=== PATIENT | female | born 1945 | race Caucasian/White ===

== ENCOUNTER → 2016-05-18 | Outpatient (CLI) | payer OTHER | LOC: FIMAGING 10:18 | PROVIDERS: ATTEND Internal Medicine | DX: M48.02 Spinal stenosis, cervical region (principal); R42 Dizziness and giddiness; M54.2 Cervicalgia; M50.30 Other cervical disc degeneration, unspecified cervical region; G95.20 Unspecified cord compression; I71.4 Abdominal aortic aneurysm, without rupture; I72.3 Aneurysm of iliac artery ==

== ENCOUNTER 2016-09-07 05:00 | Inpatient (IN) | payer OTHER ==
--- NOTE | 2016-09-07 05:10 | EDPHY ---
H & P Stated Complaint: abd and back pain, n/v HPI/ROS: Chief Complaint: Abdominal pain HPI: 71-year-old woman presenting with abdominal pain for the last 12 hours. Again yesterday late afternoon. Has been crampy in nature. At worst is a 6/ 10. Some nausea and vomiting. No diarrhea but has had some constipation. No fevers or chills. No chest pain or shortness of breath. Pain has been constant. There is no aggravating or alleviating factors. she does have a history of kidney stones but this feels very different. ROS: 10 point Review of Systems is negative except as noted in the HPI. PMH: Kidney stones Surgical history: None Medications: None Allergies: None Social History: No smoking, no alcohol, no recreational drug use Family History: non-contributory Physical Exam: Gen: Awake, Alert, uncomfortable appearing HEENT: Nose: no rhinorrhea Eyes: PERRLA, EOMI Mouth: Moist mucosa Neck: Supple, no JVD Chest: nontender, lungs clear to auscultation Heart: S1, S2 normal, no murmur Abd: Soft, diffuse abdominal tenderness without distention, most noted in the right greater than left lower quadrant., moderate voluntary guarding Back: no CVA tenderness, no midline tenderness Ext: no edema, non-tender Skin: no rash Neuro: CN II-XII intact, Sensation grossly intact, Strength 5/5 in bilateral upper and lower extremities - Personal History Tetanus Vaccine Date: <10YRS - Medical/Surgical History Hx Asthma: No Hx Chronic Respiratory Disease: No Hx Diabetes: No Hx Cardiac Disease: No Hx Renal Disease: No Hx Cirrhosis: No Hx Alcoholism: No Hx HIV/AIDS: No Hx Splenectomy or Spleen Trauma: No Other PMH: kidney stones - Social History Smoking Status: Never smoked Constitutional: Initial Vital Signs Temperature (C) 36.9 C 09/07/16 05:04 Heart Rate 71 09/07/16 05:04 Respiratory Rate 18 09/07/16 05:04 Blood Pressure 127/77 H 09/07/16 05:04 O2 Sat (%) 93 09/07/16 05:04 O2 Delivery Mode Room Air O2 (L/minute) 3 Allergies/Adverse Reactions: No Known Allergies Allergy (Verified 12/28/14 10:53) Home Medications: Medication Instructions Recorded NK [No Known Home Meds] 09/07/16 Medical Decision Making - Diagnostics Imaging Results: High-grade mechanical small-bowel obstruction down to the ileum with some associated ascites per Dr. Barron Imaging: Discussed imaging studies w/ calliope player Radiologist ED Course/Re-evaluation: Laboratory evaluations are unremarkable. Patient is improved after analgesia. CT scan shows a high-grade small-bowel obstruction. I have discussed with Dr. Us, general surgery. He is evaluating the patient now. I have spoke with Dr. Daley, hospitalist. She will admit to their service for further care and evaluation. - Data Points Laboratory Results: Laboratory Results 09/07/16 05:20 09/07/16 05:20 09/07/16 09/07/16 05:20 05:20 WBC 9.04 10^3/uL 10^3/uL (3.80-9.50) RBC 4.91 10^6/uL 10^6/uL (4.18-5.33) Hgb 15.4 g/dL g/dL (12.6-16.3) Hct 46.1 % % (38.0-47.0) MCV 93.9 fL fL (81.5-99.8) MCH 31.4 pg pg (27.9-34.1) MCHC 33.4 g/dL g/dL (32.4-36.7) RDW 14.0 % % (11.5-15.2) Plt Count 341 10^3/uL 10^3/uL (150-400) MPV 9.2 fL fL (8.7-11.7) Neut % (Auto) 57.8 % % (39.3-74.2) Lymph % (Auto) 26.4 % % (15.0-45.0) Traverse % (Auto) 7.6 % % (4.5-13.0) Eos % (Auto) 6.7 % % (0.6-7.6) Baso % (Auto) 1.2 % % (0.3-1.7) Nucleat RBC Rel Count 0.0 % % (0.0-0.2) Absolute Neuts (auto) 5.21 10^3/uL 10^3/uL (1.70-6.50) Absolute Lymphs (auto) 2.39 10^3/uL 10^3/uL (1.00-3.00) Absolute Monos (auto) 0.69 10^3/uL 10^3/uL (0.30-0.80) Absolute Eos (auto) 0.61 10^3/uL H 10^3/uL (0.03-0.40) Absolute Basos (auto) 0.11 10^3/uL H 10^3/uL (0.02-0.10) Absolute Nucleated RBC 0.00 10^3/uL 10^3/uL (0-0.01) Immature Gran % 0.3 % % (0.0-1.1) Immature Gran # 0.03 10^3/uL 10^3/uL (0.00-0.10) Sodium 143 mEq/L mEq/L (134-144) Potassium 4.4 mEq/L mEq/L (3.5-5.2) Chloride 109 mEq/L mEq/L (97-110) Carbon Dioxide 26 mEq/l mEq/l (22-31) Anion Gap 8 mEq/L mEq/L (8-16) BUN 12 mg/dL mg/dL (7-23) Creatinine 0.8 mg/dL mg/dL (0.6-1.0) Estimated GFR > 60 Glucose 120 mg/dL H mg/dL (70-100) Calcium 10.2 mg/dL mg/dL (8.5-10.4) Total Bilirubin 0.7 mg/dL mg/dL (0.1-1.4) Conjugated Bilirubin 0.3 mg/dL mg/dL (0.0-0.5) Unconjugated Bilirubin 0.4 mg/dL mg/dL (0.0-1.1) AST 27 IU/L IU/L (14-46) ALT 38 IU/L IU/L (9-52) Alkaline Phosphatase 100 IU/L IU/L (38-126) Total Protein 6.8 g/dL g/dL (6.3-8.2) Albumin 4.0 g/dL g/dL (3.5-5.0) Lipase 87.0 IU/L IU/L (23-300) Medications Given: Discontinued Medications Sodium Chloride (Ns) 1,000 mls @ 0 mls/hr IV ONCE ONE PRN Reason: Wide Open Stop: 09/07/16 05:20 Last Admin: 09/07/16 05:19 Dose: 1,000 mls Morphine Sulfate (Morphine) 4 mg IVP ONCE ONE Stop: 09/07/16 05:20 Last Admin: 09/07/16 05:20 Dose: 4 mg Ondansetron HCl (Zofran) 4 mg IVP EDNOW ONE Stop: 09/07/16 05:20 Last Admin: 09/07/16 05:20 Dose: 4 mg Departure - Departure Disposition: [facility] Inpatient Acute Clinical Impression: Small bowel obstruction Condition: Fair Referrals: Sadie Blanco MD [Primary Care Provider] - As per Instructions
[2016-09-07] MEDS ORDERED: NS 1,000 ML IV ONE (05:19)
[2016-09-07] MEDS ORDERED: ONDANSETRON 4 MG/2 ML VIAL IVP ONE (05:19)
[2016-09-07 05:27] LABS: % IMMATURE GRANULYOCYTES 0.3 % (0.0-1.1); ABSOLUTE IMMATURE GRANULOCYTES 0.03 10^3/uL (0.00-0.10); ADD DIFF? NO; ADD MORPH? NO; ADD SCAN? NO; ATYPICAL LYMPHOCYTE FLAG 0 (0-99); FRAGMENT RBC FLAG 0 (0-99); HEMATOCRIT 46.1 % (38.0-47.0); HEMOGLOBIN 15.4 g/dL (12.6-16.3); LEFT SHIFT FLG 0 (0-99); LIPEMIA HEMOLYSIS FLAG 80 (0-99); MEAN CELL HEMOGLOBIN 31.4 pg (27.9-34.1); MEAN CELL HEMOGLOBIN CONCENTR. 33.4 g/dL (32.4-36.7); MEAN CELL VOLUME 93.9 fL (81.5-99.8); MEAN PLATELET VOLUME 9.2 fL (8.7-11.7); PLATELET CLUMPS FLAG 0 (0-99); PLATELET COUNT 341 10^3/uL (150-400); RED BLOOD CELL COUNT 4.91 10^6/uL (4.18-5.33)
[2016-09-07] MEDS ORDERED: IOPAMIDOL (ISOVUE-300) 100 ML BTL ONE (05:28)
[2016-09-07 06:07] LABS: ALANINE AMINOTRANSFERASE 38 IU/L (9-52); ALKALINE PHOSPHATASE 100 IU/L (38-126); ANION GAP 8 mEq/L (8-16); ASPARTATE AMINOTRANSFERASE 27 IU/L (14-46); BILIRUBIN,TOTAL 0.7 mg/dL (0.1-1.4); CALCIUM 10.2 mg/dL (8.5-10.4); CARBON DIOXIDE 26 mEq/l (22-31); CHLORIDE 109 mEq/L (97-110); CREATININE 0.8 mg/dL (0.6-1.0); GLOMERULAR FILTRATION RATE > 60; GLUCOSE 120 mg/dL (70-100); POTASSIUM 4.4 mEq/L (3.5-5.2); SODIUM 143 mEq/L (134-144); TOTAL PROTEIN 6.8 g/dL (6.3-8.2)
[2016-09-07 06:16] LABS: BILIRUBIN-CONJUGATED 0.3 mg/dL (0.0-0.5); BILIRUBIN-UNCONJUGATED 0.4 mg/dL (0.0-1.1)
[2016-09-07] MEDS ORDERED: ACETAMINOPHEN 325 MG TAB PO PRN (07:01)
[2016-09-07] MEDS ORDERED: ONDANSETRON DISINTEGRATING 4 MG TAB PO PRN (07:01)
[2016-09-07] MEDS ORDERED: ONDANSETRON 4 MG/2 ML VIAL IVP PRN (07:01)
--- NOTE | 2016-09-07 07:09 | SOAPPROG ---
SOAP Progress Note Assessment/Plan: Assessment: 71 female with sbo of uncertain etiology abd soft and nontender after morphine afebrile Plan:will follow/ likely will need surgery 09/07/16 07:08 Objective: Vital Signs Temp Pulse Resp BP Pulse Ox 36.9 C 71 18 127/77 H 98 09/07/16 05:04 09/07/16 05:04 09/07/16 05:04 09/07/16 05:04 09/07/16 05:29 ICD10 Worksheet Patient Problems: Problems Problem Status Onset Small bowel obstruction Acute Altered mental status Acute
[2016-09-07] MEDS ORDERED: NS 1,000 ML IV SCH (07:15)
--- NOTE | 2016-09-07 07:17 | PDGENHP ---
History and Physical - Chief Complaint abdominal pain - History of Present Illness Patient is a 71 year old female with no significant pmh who presents to the ED with complaint of abdominal pain. Patient states her symptoms started yesterday afternoon with band-like crampy abdominal pain across her lower abdomen. Pain was mild at first, but was constant and progressively worsening. By this late evening/prop and scenery maker her pain was about a 6/10 in intensity and had become associated with nausea. No diarrhea, reports her last BM was yesterday morning and states she is no longer passing flatus. She has never had these symptoms before. She reports no abdominal surgeries, has had a normal colonoscopy several years ago. On arrival to the ED, she was afebrile, hemodynamically stable. Labs, including cbc, bmp, were unremarkable. CT abd/pelvis was then obtained and revealed a high grade small bowel obstruction. She had one episode of nonbilious vomiting on arrival to the ED. General surgery has been consulted, and patient was admitted to the hospitalist service for further management. History Information - Allergies/Home Medication List Allergies/Adverse Reactions: No Known Allergies Allergy (Verified 12/28/14 10:53) Home Medications: NK [No Known Home Meds] 09/07/16 [Last Taken Unknown] I have personally reviewed and updated: family history, medical history, social history, surgical history - Past Medical History Additional medical history: peripheral neuropathy of her feet. 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 Review of Systems ROS: 10pt was reviewed & negative except for what was stated in HPI & below Physical Exam Temp Pulse Resp BP Pulse Ox 36.9 C 71 18 127/77 H 98 09/07/16 05:04 09/07/16 05:04 09/07/16 05:04 09/07/16 05:04 09/07/16 05:29 Constitutional: no apparent distress, appears nourished, not in pain Eyes: PERRL, anicteric sclera, EOMI Ears, Nose, Mouth, Throat: moist mucous membranes, hearing normal, ears appear normal, no oral mucosal ulcers Cardiovascular: regular rate and rhythym, no murmur, rub, or gallop, pulses symmetric bilaterally, No JVD, No edema Peripheral Pulses: 2+: dorsalis-pedis (R), dorsalis-pedis (L) Respiratory: no respiratory distress, no rales or rhonchi, clear to auscultation Gastrointestinal: other (hypoactive BS, mildly distended abdomen; mild tenderness in lower quadrants) Genitourinary: no bladder fullness, no bladder tenderness Skin: warm, normal color, no rashes or abrasions, no fluctuance, no induration, No mottled Musculoskeletal: full muscle strength, no muscle tenderness, normal joint ROM, no joint effusions Neurologic: AAOx3, sensation intact bilaterally, CN II-XII Intact, No weakness, No numbness, No facial droop Psychiatric: interacting appropriately, not anxious, not encephalopathic, thought process linear Lab Data & Imaging Review 09/07/16 05:20 09/07/16 05:20 WBC 9.04 10^3/uL (3.80-9.50) 09/07/16 05:20 RBC 4.91 10^6/uL (4.18-5.33) 09/07/16 05:20 Hgb 15.4 g/dL (12.6-16.3) 09/07/16 05:20 Hct 46.1 % (38.0-47.0) 09/07/16 05:20 MCV 93.9 fL (81.5-99.8) 09/07/16 05:20 MCH 31.4 pg (27.9-34.1) 09/07/16 05:20 MCHC 33.4 g/dL (32.4-36.7) 09/07/16 05:20 RDW 14.0 % (11.5-15.2) 09/07/16 05:20 Plt Count 341 10^3/uL (150-400) 09/07/16 05:20 MPV 9.2 fL (8.7-11.7) 09/07/16 05:20 Neut % (Auto) 57.8 % (39.3-74.2) 09/07/16 05:20 Lymph % (Auto) 26.4 % (15.0-45.0) 09/07/16 05:20 Traverse % (Auto) 7.6 % (4.5-13.0) 09/07/16 05:20 Eos % (Auto) 6.7 % (0.6-7.6) 09/07/16 05:20 Baso % (Auto) 1.2 % (0.3-1.7) 09/07/16 05:20 Nucleat RBC Rel Count 0.0 % (0.0-0.2) 09/07/16 05:20 Absolute Neuts (auto) 5.21 10^3/uL (1.70-6.50) 09/07/16 05:20 Absolute Lymphs (auto) 2.39 10^3/uL (1.00-3.00) 09/07/16 05:20 Absolute Monos (auto) 0.69 10^3/uL (0.30-0.80) 09/07/16 05:20 Absolute Eos (auto) 0.61 10^3/uL (0.03-0.40) H 09/07/16 05:20 Absolute Basos (auto) 0.11 10^3/uL (0.02-0.10) H 09/07/16 05:20 Absolute Nucleated RBC 0.00 10^3/uL (0-0.01) 09/07/16 05:20 Immature Gran % 0.3 % (0.0-1.1) 09/07/16 05:20 Immature Gran # 0.03 10^3/uL (0.00-0.10) 09/07/16 05:20 Sodium 143 mEq/L (134-144) 09/07/16 05:20 Potassium 4.4 mEq/L (3.5-5.2) 09/07/16 05:20 Chloride 109 mEq/L (97-110) 09/07/16 05:20 Carbon Dioxide 26 mEq/l (22-31) 09/07/16 05:20 Anion Gap 8 mEq/L (8-16) 09/07/16 05:20 BUN 12 mg/dL (7-23) 09/07/16 05:20 Creatinine 0.8 mg/dL (0.6-1.0) 09/07/16 05:20 Estimated GFR > 60 09/07/16 05:20 Glucose 120 mg/dL (70-100) H 09/07/16 05:20 Calcium 10.2 mg/dL (8.5-10.4) 09/07/16 05:20 Total Bilirubin 0.7 mg/dL (0.1-1.4) 09/07/16 05:20 Conjugated Bilirubin 0.3 mg/dL (0.0-0.5) 09/07/16 05:20 Unconjugated Bilirubin 0.4 mg/dL (0.0-1.1) 09/07/16 05:20 AST 27 IU/L (14-46) 09/07/16 05:20 ALT 38 IU/L (9-52) 09/07/16 05:20 Alkaline Phosphatase 100 IU/L (38-126) 09/07/16 05:20 Total Protein 6.8 g/dL (6.3-8.2) 09/07/16 05:20 Albumin 4.0 g/dL (3.5-5.0) 09/07/16 05:20 Lipase 87.0 IU/L (23-300) 09/07/16 05:20 Visualized and Interpreted imaging results: Yes Interpretation: CT abd/pelvis: high grade small bowel obstruction; prelim read Assessment & Plan Assessment: Patient is a 71 year old female with no significant pmh who presents to the ED complaining of about 12 hours of constant, dull achy abdominal pain. ED evaluation reveals acute small bowel obstruction. Plan: # acute small bowel obstruction Etiology of this is unclear, as patient has had no previous abdominal surgeries , reports a normal colonoscopies in her past, usually has 1 BM/day. General surgery following, will consider surgical exploration. Currently, patient is not vomiting, so will hold off on NG tube at this time. - NPO - IV fluid hydration - NGT placement if vomiting - serial abdominal exams - f/u surgery recommendations # dispo: admit to inpatient status for likely > 2 MN stay #gen: NPO DVT ppx: [email or web address] Full code
--- NOTE | 2016-09-07 09:15 | CPEKG ---
Heart Rate: 56 RR Interval: 1071 P-R Interval: 168 QRSD Interval: 96 QT Interval: 448 QTC Interval: 433 P Slaughter: 66 QRS Slaughter: -56 T Wave Slaughter: 7 EKG Severity - ABNORMAL ECG - EKG Impression: SINUS RHYTHM EKG Impression: LEFT ANTERIOR FASCICULAR BLOCK EKG Impression: LOW VOLTAGE IN FRONTAL LEADS Electronically Signed By: Pato Hubbard 07-Sep-2016 16:52:50
--- NOTE | 2016-09-07 13:19 | HOSPPROG ---
Hospitalist Progress Note Assessment/Plan: Patient is a 71 year old female with no significant pmh who presents to the ED complaining of about 12 hours of constant, dull achy abdominal pain. ED evaluation reveals acute small bowel obstruction. Plan: # acute small bowel obstruction Etiology of this is unclear, as patient has had no previous abdominal surgeries , reports a normal colonoscopies in her past, usually has 1 BM/day. General surgery following, will consider surgical exploration. Currently, patient is not vomiting, so will hold off on NG tube at this time. - NPO - IV fluid hydration - NGT placement if vomiting - serial abdominal exams - f/u surgery recommendations # dispo: admit to inpatient status for likely > 2 MN stay #gen: NPO DVT ppx: [email or web address] Full code Subjective: Less pain. Anxious to get better. Objective: Vital Signs Temp Pulse Resp BP Pulse Ox 36.7 C 57 L 16 121/64 H 100 09/07/16 11:45 09/07/16 11:45 09/07/16 11:45 09/07/16 11:45 09/07/16 11:45 09/06/16 09/07/16 09/08/16 05:59 05:59 05:59 Intake Total 1000 Balance 1000 - Physical Exam Constitutional: no apparent distress, not in pain Eyes: PERRL, anicteric sclera Ears, Nose, Mouth, Throat: hearing normal, ears appear normal Cardiovascular: No JVD, No edema Respiratory: no respiratory distress Gastrointestinal: No tenderness, No ascites Skin: normal color, No erythema Musculoskeletal: generalized weakness Neurologic: AAOx3 Psychiatric: not encephalopathic, anxious ICD10 Worksheet Patient Problems: Problems Problem Status Onset Altered mental status Acute Small bowel obstruction Acute
[2016-09-07] MEDS ORDERED: MELATONIN 3 MG TAB PO SCH (21:45)
--- NOTE | 2016-09-08 10:31 | SOAPPROG ---
SOAP Progress Note Assessment/Plan: Assessment: 71 female with sbo of uncertain etiology abd soft and nontender after morphine afebrile Plan:will follow/ likely will need surgery 09/07/16 07:08 09/08/16 10:30 FEELS GREAT/ NO EMESIS/ NO FLATUS/ 2-WAY IMPROVED/ WILL TRY SBFT/ POSSIBLY HOME Objective: Vital Signs Temp Pulse Resp BP Pulse Ox 36.8 C 65 16 112/67 95 09/08/16 08:00 09/08/16 08:00 09/08/16 08:00 09/08/16 08:00 09/08/16 08:00 09/07/16 09/08/16 09/09/16 05:59 05:59 05:59 Intake Total 1000 Balance 1000 ICD10 Worksheet Patient Problems: Problems Problem Status Onset Small bowel obstruction Acute Altered mental status Acute
--- NOTE | 2016-09-08 13:50 | HOSPPROG ---
Hospitalist Progress Note Assessment/Plan: Patient is a 71 year old female with no significant pmh who presents to the ED complaining of about 12 hours of constant, dull achy abdominal pain. ED evaluation reveals acute small bowel obstruction. Plan: # acute small bowel obstruction Etiology of this is unclear, as patient has had no previous abdominal surgeries , reports a normal colonoscopies in her past, usually has 1 BM/day. General surgery following, - patient is not vomiting, so will hold off on NG tube at this time. -SBF today - ice chips - serial abdominal exams - f/u surgery recommendations - improving # dispo: possible DC home if SBF stable D/W Dr Us #gen: NPO DVT ppx: [email or web address] Full code Subjective: Feels better today. No pain. No issues. Objective: Vital Signs Temp Pulse Resp BP Pulse Ox 36.8 C 64 16 129/71 H 95 09/08/16 11:32 09/08/16 11:32 09/08/16 11:32 09/08/16 11:32 09/08/16 11:32 09/07/16 09/08/16 09/09/16 05:59 05:59 05:59 Intake Total 1000 Balance 1000 - Physical Exam Constitutional: no apparent distress, not in pain Eyes: PERRL, anicteric sclera Ears, Nose, Mouth, Throat: moist mucous membranes, hearing normal Cardiovascular: No JVD, No edema Respiratory: no respiratory distress, reduced air movement Gastrointestinal: No tenderness, No ascites Skin: warm, normal color Musculoskeletal: full muscle strength, no joint effusions Neurologic: AAOx3 Psychiatric: interacting appropriately, not encephalopathic, thought process linear ICD10 Worksheet Patient Problems: Problems Problem Status Onset Altered mental status Acute Small bowel obstruction Acute
[2016-09-08 15:50] VITALS: BP 143/90; PULSE 66; RESP 14; TEMP 97.6; O2SAT 93
--- NOTE | 2016-09-08 19:50 | SOAPPROG ---
SOAP Progress Note Assessment/Plan: Assessment: 71 female with sbo of uncertain etiology abd soft and nontender after morphine afebrile Plan:will follow/ likely will need surgery 09/07/16 07:08 09/08/16 10:30 FEELS GREAT/ NO EMESIS/ NO FLATUS/ 2-WAY IMPROVED/ WILL TRY SBFT/ POSSIBLY HOME 09/08/16 19:49 MUCH IMPROVED/SMALL-BOWEL FOLLOW-THROUGH NORMAL/ TOLERATING P.O. / HOME TONIGHT / FOLLOW UP IN THE OFFICE NEXT WEEK Objective: Vital Signs Temp Pulse Resp BP Pulse Ox 36.4 C 66 14 143/90 H 93 09/08/16 15:45 09/08/16 15:45 09/08/16 15:45 09/08/16 15:45 09/08/16 15:45 09/07/16 09/08/16 09/09/16 05:59 05:59 05:59 Intake Total 1000 1200 Balance 1000 1200 ICD10 Worksheet Patient Problems: Problems Problem Status Onset Small bowel obstruction Acute Altered mental status Acute
[2016-09-08] MEDS ORDERED: MELATONIN 3 MG TAB PO SCH ×2 (21:00)
== END 2016-09-08 20:20 | disposition home or self-care (01) | DRG 390 ==
LOC: F3E 08:04
PROVIDERS: ADMIT Internal Medicine; ATTEND Emergency Medicine
DX: K56.60 Unspecified intestinal obstruction (principal); G62.9 Polyneuropathy, unspecified
CPT/HCPCS: 96374; J2405; Q9967

== ENCOUNTER 2016-10-10 11:06 | Observation (INO) | payer OTHER ==
--- NOTE | 2016-10-10 11:26 | EDPHY ---
H & P Time Seen by Provider: 10/10/16 11:26 HPI/ROS: CHIEF COMPLAINT: Abdominal pain HISTORY OF PRESENT ILLNESS: Admission in August of this year for bowel obstruction. Today presents with abdominal pain starting earlier this morning around 730. Left lower quadrant, does not radiate, associated with nausea. No diarrhea. No recent injury fall or trauma, no fever. Decreased oral intake and chronic dehydration per her . REVIEW OF SYSTEMS: Eye: no change in vision ENT: no sore throat Cardiac: no chest pain or syncope Pulmonary: no cough or SOB Abdomen: HPI Musculoskeletal: no back pain Skin: no rash Neuro: no headache Constitutional: no fever : no urinary symptoms A comprehensive 10 point review of systems is otherwise negative aside from elements mentioned in the history of present illness. PAST MEDICAL HISTORY: History and physical dated 09/07/2016 personally reviewed , includes renal stones and peripheral neuropathy and bowel obstruction Social history: Here with and son General Appearance: Alert and conversant, cooperative. Eyes: No scleral icterus. ENT, Mouth: Normal mucous membranes. Respiratory: Normal respiratory effort, breath sounds equal, lungs are clear to auscultation. Cardiovascular: Regular rate and rhythm. Gastrointestinal: Left lower quadrant tenderness and decreased bowel sounds Neurological: Alert and oriented x3. Normally conversant. Face symmetric, normal movement and sensation in all extremities. Skin: Abrasion left chin multiple scattered bruises, no cellulitis. Musculoskeletal: No peripheral edema and no joint swelling. Psychiatric: Not agitated. Emergency Department course/MDM: 1320: Multiple stones in the left ureter. 3 total with largest one 7 x 4 x 5 mm. Results discussed with the patient at this time, plan to call [facility] her practice. Dr. John recommends admission for urology consultation and possible ureteroscopy. Discussed results with the patient and his recommendation and she is agreeable. Additional 0.5 mg IV Dilaudid and 15 mg IV Toradol. Smoking Status: Never smoked Constitutional: Initial Vital Signs Temperature (C) 36.5 C 10/10/16 11:11 Heart Rate 60 10/10/16 11:11 Respiratory Rate 16 10/10/16 11:11 Blood Pressure 103/82 H 10/10/16 11:11 O2 Sat (%) 95 10/10/16 11:11 O2 Delivery Mode Room Air Allergies/Adverse Reactions: No Known Allergies Allergy (Verified 12/28/14 10:53) Home Medications: Medication Instructions Recorded Cyanocobalamin [Vitamin B12 1,000 mcg IM Q14D 09/07/16 1000MCG/ML (*)] Medical Decision Making - Diagnostics Imaging Results: Imaging Impressions Abdomen CT 10/10/16 11:49 Impression: 1. Moderate left-sided hydronephrosis with dilated left ureter down to the mid pelvis where there is a dominant 7 x 4.5 x 5 mm calculus with 2 adjacent smaller 3 mm calculi just proximal to this. 2. Bilateral nephrolithiasis with at least 10 nonobstructive renal calculi in each kidney. 3. Stable prominence of the pancreatic duct without associated mass or calculus. 4. 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 Findings discussed with Ezio Smith M.D. at 13:13 hour, 10/10/2016. Consult/Admit Bed Type: [place] 1404, Andres Tray 1410 - Data Points Laboratory Results: Laboratory Results 10/10/16 11:20 10/10/16 11:20 10/10/16 10/10/16 10/10/16 13:40 11:40 11:20 WBC RBC Hgb POC Hgb 10.9 gm/dL L gm/dL (12.6-16.3) Hct POC Hct 32 % L % (38-47) MCV MCH MCHC RDW Plt Count MPV Neut % (Auto) Lymph % (Auto) [place] % (Auto) Eos % (Auto) Baso % (Auto) Nucleat RBC Rel Count Absolute Neuts (auto) Absolute Lymphs (auto) Absolute Monos (auto) Absolute Eos (auto) Absolute Basos (auto) Absolute Nucleated RBC Immature Gran % Immature Gran # POC Sodium 144 mEq/L mEq/L (134-144) Sodium 144 mEq/L mEq/L (134-144) POC Potassium 3.5 mEq/L mEq/L (3.3-5.0) Potassium 3.6 mEq/L mEq/L (3.5-5.2) POC Chloride 112 mEq/L H mEq/L (97-110) Chloride 112 mEq/L H mEq/L (97-110) Carbon Dioxide 22 mEq/l mEq/l (22-31) Anion Gap 10 mEq/L mEq/L (8-16) POC BUN 9 mg/dL mg/dL (7-23) BUN 12 mg/dL mg/dL (7-23) Creatinine 0.8 mg/dL mg/dL (0.6-1.0) POC Creatinine 0.9 mg/dL mg/dL (0.6-1.0) Estimated GFR > 60 Glucose 91 mg/dL mg/dL (70-100) POC Glucose 96 mg/dL mg/dL (70-100) Calcium 9.2 mg/dL mg/dL (8.5-10.4) Urine Color YELLOW Urine Appearance HAZY Urine pH 5.0 (5.0-7.5) Ur Specific [place] > 1.035 H (1.002-1.030) Urine Protein NEGATIVE (NEGATIVE) Urine Ketones NEGATIVE (NEGATIVE) Urine Blood 3+ H (NEGATIVE) Urine Nitrate NEGATIVE (NEGATIVE) Urine Bilirubin NEGATIVE (NEGATIVE) Urine Urobilinogen NEGATIVE EU EU (0.2-1.0) Ur Leukocyte Esterase NEGATIVE (NEGATIVE) Urine RBC 50-182 /hpf H /hpf (0-3) Urine WBC NONE SEEN /hpf /hpf (0-3) Ur Epithelial Cells NONE SEEN /lpf /lpf (NONE-1+) Urine Mucus TRACE /lpf /lpf (NONE-1+) Urine Glucose NEGATIVE (NEGATIVE) 10/10/16 11:20 WBC 6.11 10^3/uL 10^3/uL (3.80-9.50) RBC 3.94 10^6/uL L 10^6/uL (4.18-5.33) Hgb 12.3 g/dL L g/dL (12.6-16.3) POC Hgb Hct 37.1 % L % (38.0-47.0) POC Hct MCV 94.2 fL fL (81.5-99.8) MCH 31.2 pg pg (27.9-34.1) MCHC 33.2 g/dL g/dL (32.4-36.7) RDW 13.5 % % (11.5-15.2) Plt Count 323 10^3/uL 10^3/uL (150-400) MPV 9.2 fL fL (8.7-11.7) Neut % (Auto) 65.6 % % (39.3-74.2) Lymph % (Auto) 18.0 % % (15.0-45.0) [place] % (Auto) 10.0 % % (4.5-13.0) Eos % (Auto) 4.6 % % (0.6-7.6) Baso % (Auto) 1.3 % % (0.3-1.7) Nucleat RBC Rel Count 0.0 % % (0.0-0.2) Absolute Neuts (auto) 4.01 10^3/uL 10^3/uL (1.70-6.50) Absolute Lymphs (auto) 1.10 10^3/uL 10^3/uL (1.00-3.00) Absolute Monos (auto) 0.61 10^3/uL 10^3/uL (0.30-0.80) Absolute Eos (auto) 0.28 10^3/uL 10^3/uL (0.03-0.40) Absolute Basos (auto) 0.08 10^3/uL 10^3/uL (0.02-0.10) Absolute Nucleated RBC 0.00 10^3/uL 10^3/uL (0-0.01) Immature Gran % 0.5 % % (0.0-1.1) Immature Gran # 0.03 10^3/uL 10^3/uL (0.00-0.10) POC Sodium Sodium POC Potassium Potassium POC Chloride Chloride Carbon Dioxide Anion Gap POC BUN BUN Creatinine POC Creatinine Estimated GFR Glucose POC Glucose Calcium Urine Color Urine Appearance Urine pH Ur Specific [place] Urine Protein Urine Ketones Urine Blood Urine Nitrate Urine Bilirubin Urine Urobilinogen Ur Leukocyte Esterase Urine RBC Urine WBC Ur Epithelial Cells Urine Mucus Urine Glucose Medications Given: Discontinued Medications Hydromorphone HCl (Dilaudid) 0.5 mg IVP EDNOW ONE Stop: 10/10/16 11:28 Last Admin: 10/10/16 11:32 Dose: 0.5 mg Hydromorphone HCl (Dilaudid) 0.5 mg IVP EDNOW ONE Stop: 10/10/16 14:09 Last Admin: 10/10/16 14:26 Dose: 0.5 mg Sodium Chloride (Ns) 1,000 mls @ 0 mls/hr IV ONCE ONE PRN Reason: Wide Open Stop: 10/10/16 11:28 Last Admin: 10/10/16 11:31 Dose: 1,000 mls Sodium Chloride (Ns) 1,000 mls @ 0 mls/hr IV EDNOW ONE; Wide Open PRN Reason: Protocol Stop: 10/10/16 11:40 Last Admin: 10/10/16 11:55 Dose: 1,000 mls Ketorolac Tromethamine (Toradol) 15 mg IVP EDNOW ONE Stop: 10/10/16 14:09 Last Admin: 10/10/16 14:25 Dose: 15 mg Ondansetron HCl (Zofran) 4 mg IVP EDNOW ONE Stop: 10/10/16 11:28 Last Admin: 10/10/16 11:31 Dose: 4 mg Point of Care Test Results: 10/10/16 11:40 POC Sodium 144 POC Potassium 3.5 POC Chloride 112 H POC BUN 9 POC Creatinine 0.9 POC Glucose 96 Departure - Departure Disposition: [facility] Inpatient Acute Clinical Impression: Renal colic on left side Condition: Good
[2016-10-10] MEDS ORDERED: ONDANSETRON 4 MG/2 ML VIAL IVP ONE (11:27)
[2016-10-10] MEDS ORDERED: NS 1,000 ML IV ONE ×2 (11:27→11:39)
[2016-10-10] MEDS ORDERED: HYDROmorphONE/DILAUDID 1 MG/ML SYR IVP ONE ×2 (11:27→14:08)
[2016-10-10 11:44] LABS: % IMMATURE GRANULYOCYTES 0.5 % (0.0-1.1); ABSOLUTE IMMATURE GRANULOCYTES 0.03 10^3/uL (0.00-0.10); ADD DIFF? NO; ADD MORPH? NO; ADD SCAN? NO; ATYPICAL LYMPHOCYTE FLAG 10 (0-99); FRAGMENT RBC FLAG 0 (0-99); HEMATOCRIT 37.1 % (38.0-47.0); HEMOGLOBIN 12.3 g/dL (12.6-16.3); LEFT SHIFT FLG 10 (0-99); LIPEMIA HEMOLYSIS FLAG 80 (0-99); MEAN CELL HEMOGLOBIN 31.2 pg (27.9-34.1); MEAN CELL HEMOGLOBIN CONCENTR. 33.2 g/dL (32.4-36.7); MEAN CELL VOLUME 94.2 fL (81.5-99.8); MEAN PLATELET VOLUME 9.2 fL (8.7-11.7); PLATELET CLUMPS FLAG 10 (0-99); PLATELET COUNT 323 10^3/uL (150-400); RED BLOOD CELL COUNT 3.94 10^6/uL (4.18-5.33); RED CELL DISTRIBUTION WIDTH 13.5 % (11.5-15.2)
[2016-10-10 11:52] LABS: ANION GAP 10 mEq/L (8-16); CALCIUM 9.2 mg/dL (8.5-10.4); CARBON DIOXIDE 22 mEq/l (22-31); CHLORIDE 112 mEq/L (97-110); CREATININE 0.8 mg/dL (0.6-1.0); GLOMERULAR FILTRATION RATE > 60; GLUCOSE 91 mg/dL (70-100); POTASSIUM 3.6 mEq/L (3.5-5.2); SODIUM 144 mEq/L (134-144)
[2016-10-10] MEDS ORDERED: IOPAMIDOL (ISOVUE-300) 100 ML BTL ONE (12:18)
[2016-10-10 13:55] LABS: COLOR YELLOW; LEUKOCYTE ESTERASE,URINE NEGATIVE (NEGATIVE); NITRITE,URINE NEGATIVE (NEGATIVE)
[2016-10-10] MEDS ORDERED: KETOROLAC 30 MG/1 ML SDV IVP ONE (14:08)
[2016-10-10 14:09] LABS: RBC,URINE 50-182 /hpf (0-3); WBC,URINE NONE SEEN /hpf (0-3)
[2016-10-10 14:10] LABS: MUCUS TRACE /lpf (NONE-1+)
[2016-10-10] MEDS ORDERED: ACETAMINOPHEN 325 MG TAB PO PRN (14:48)
[2016-10-10] MEDS ORDERED: NALOXONE HCL 0.4 MG/ML INJ IVP PRN (14:48)
[2016-10-10] MEDS ORDERED: ONDANSETRON DISINTEGRATING 4 MG TAB PO PRN (14:48)
[2016-10-10] MEDS ORDERED: ONDANSETRON 4 MG/2 ML VIAL IVP PRN (14:48)
[2016-10-10] MEDS ORDERED: morphINE PCA 30 MG/30 ML PCA IV PRN (14:48)
[2016-10-10] MEDS ORDERED: PROMETHAZINE HCL 25 MG/ML INJ IVP PRN (14:53)
[2016-10-10] MEDS: NS 1,000 ML IV SCH (15:44)
--- NOTE | 2016-10-10 15:44 | GHP ---
[f rep st] HISTORY AND PHYSICAL DATE OF ADMISSION: 10/10/2016 The patient is a pleasant 71-year-old female with a history of nephrolithiasis times many who presen ts with left-sided flank pain that began this morning. She was recently admitted for a small-bowel obstruction that resolved without intervention. She has had nausea, vomiting, abdominal pain on the left side, gross hematuria. She has had subject shannan fever and chills without demonstrated fever. This is similar symptoms to previous episodes of n ephrolithiasis. REVIEW OF SYSTEMS: Complete 10-point review of systems conducted, negative except as noted in the H PI. PAST MEDICAL HISTORY: 1. Nephrolithiasis times many, she does not appear to have stone analysis here. 2. Small bowel obstruction, recent admission. 3. Admission over the 's holiday of this year with what sounds like mental status changes a nd negative workup. 4. Peripheral neuropathy. ALLERGIES: No known drug allergies. MEDICATIONS: Q14 day B12 injections. SOCIAL HISTORY: Minimal alcohol. No tobacco. Lives in [place] with her and special needs child. FAMILY HISTORY: Reviewed and unremarkable. PHYSICAL EXAM: VITAL SIGNS: Temp 36.5, blood pressure 103/82, pulse 60, breathing 16 times a minut e, 95% on room air. GENERAL: No acute distress. HEENT: Sclerae anicteric. Oropharynx clear. Mu cous membranes moist. NECK: Supple without lymphadenopathy or JVD. LUNGS: Clear to auscultation bilaterally. HEART: S1, S2. ABDOMEN: Soft, nontender, nondistended. LOWER EXTREMITIES: Without edema. Calves are nontender. Skin is without rash. NEUROLOGIC: Exam is nonfocal. LABS: White count is 6, hematocrit 37, platelets 323,000, all roughly baseline. She has a history of normal coags. None are sent today. Sodium 144, potassium 3.6, chloride 112, bicarb 22, BUN 12, creatinine 0.8, glucose 91. UA today shows 50-180 red cells, no white cells. CT of the abdomen without contrast images reviewed/interpreted by me, shows moderate left-sided hydr onephrosis with dilated left ureter, dominant 7 x 4.5 x 5 mm calculus, 2 adjacent smaller 3 mm calcu caleb just proximal to this, bilateral nephrolithiasis with at least 10 nonobstructive calculi in each kidney. Discussed the case with Dr. Ezio Denson of the emergency department. ASSESSMENT/PLAN: A 71-year-old female with a history of nephrolithiasis here with renal colic. 1. Nephrolithiasis. This stone is probably too large to pass on its own. Given her frequent stone s possible she has dilated ureters although this may not be the case. I will start her on Flomax an d strain her urine. Urology has been consulted and will see her for likely cystoscopic and ureteros copic removal. I have made her n.p.o. past midnight. 2. 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 3. Nausea, vomiting. IV Zofran and IV Phenergan. 4. Prophylaxis. Pharmacologic prophylaxis indicated, but I will hold it given the likelihood of zacarias rgical procedure tomorrow. DISPOSITION: Observation status. /[id number]/MODL
[2016-10-10] MEDS: TAMSULOSIN HCL 0.4 MG CAP PO SCH (15:45)
[2016-10-10] MEDS: KETOROLAC 15 MG/1 ML SDV IVP SCH (18:00)
[2016-10-11] MEDS: NS 1,000 ML IV SCH (00:17)
[2016-10-11] MEDS: KETOROLAC 15 MG/1 ML SDV IVP SCH ×4 (00:18→14:37)
[2016-10-11 05:02] LABS: % IMMATURE GRANULYOCYTES 0.4 % (0.0-1.1); ABSOLUTE IMMATURE GRANULOCYTES 0.02 10^3/uL (0.00-0.10); ADD DIFF? NO; ADD MORPH? NO; ADD SCAN? NO; ATYPICAL LYMPHOCYTE FLAG 0 (0-99); FRAGMENT RBC FLAG 0 (0-99); HEMATOCRIT 31.9 % (38.0-47.0); LEFT SHIFT FLG 0 (0-99); LIPEMIA HEMOLYSIS FLAG 80 (0-99); MEAN CELL HEMOGLOBIN 30.5 pg (27.9-34.1); MEAN CELL HEMOGLOBIN CONCENTR. 31.3 g/dL (32.4-36.7); MEAN CELL VOLUME 97.3 fL (81.5-99.8); MEAN PLATELET VOLUME 8.7 fL (8.7-11.7); PLATELET CLUMPS FLAG 10 (0-99); PLATELET COUNT 236 10^3/uL (150-400); RED BLOOD CELL COUNT 3.28 10^6/uL (4.18-5.33); RED CELL DISTRIBUTION WIDTH 13.9 % (11.5-15.2)
[2016-10-11 05:22] LABS: ANION GAP 6 mEq/L (8-16); CALCIUM 8.2 mg/dL (8.5-10.4); CARBON DIOXIDE 19 mEq/l (22-31); CHLORIDE 119 mEq/L (97-110); CREATININE 0.9 mg/dL (0.6-1.0); GLOMERULAR FILTRATION RATE > 60; GLUCOSE 77 mg/dL (70-100); POTASSIUM 3.6 mEq/L (3.5-5.2); SODIUM 144 mEq/L (134-144); URIC ACID 4.9 mg/dL (2.5-6.8)
[2016-10-11] MEDS: TAMSULOSIN HCL 0.4 MG CAP PO SCH (09:08)
--- NOTE | 2016-10-11 09:08 | SOAPPROG ---
REGINE Progress Note Assessment/Plan: Assessment: 1. Multiple right ureteral calculi 2. Numerous bilateral nonobstructing renal calculi. Plan: Scheduled for right ureteroscopy early this afternoon. Objective: Vital Signs Temp Pulse Resp BP Pulse Ox 36.7 C 55 L 16 106/61 90 L 10/11/16 07:44 10/11/16 07:44 10/11/16 07:44 10/11/16 07:44 10/11/16 07:44 Laboratory Results 10/11/16 04:53 10/11/16 04:53 10/10/16 10/11/16 10/12/16 05:59 05:59 05:59 Intake Total 2450 Output Total 300 Balance 2450 -300 ICD10 Worksheet Patient Problems: Problems Problem Status Onset Renal colic on left side Acute Altered mental status Acute Small bowel obstruction Acute
--- NOTE | 2016-10-11 09:50 | HOSPPROG ---
Hospitalist Progress Note Assessment/Plan: Daphne is a 71-year-old female with a history of nephrolithiasis who presented with left-sided flank pain. She had associated nausea, vomiting and abdominal pain with associated gross hematuria today is my 1st encounter with the patient. Chart reviewed. * Nephrolithiasis with moderate left-sided hydronephrosis and dilated left ureter Reviewed the CT of the abdomen She is scheduled to get a ureteroscopy today with Dr. Medina *history of a small-bowel obstruction *anemia further f/u with PCP *Plan: procedure today with Dr Medina/ will evaluate after and if stable and pain is under control, will dc home Subjective: Daphne said her pain is well managed/ no complaints. Objective: Vital Signs Temp Pulse Resp BP Pulse Ox 36.7 C 55 L 16 106/61 90 L 10/11/16 07:44 10/11/16 07:44 10/11/16 07:44 10/11/16 07:44 10/11/16 07:44 Laboratory Results 10/11/16 04:53 10/11/16 04:53 10/10/16 10/11/16 10/12/16 05:59 05:59 05:59 Intake Total 2450 Output Total 300 Balance 2450 -300 - Physical Exam Constitutional: no apparent distress, appears nourished, not in pain Eyes: PERRL Ears, Nose, Mouth, Throat: hearing normal Cardiovascular: regular rate and rhythym Respiratory: no respiratory distress Gastrointestinal: normoactive bowel sounds Skin: warm Musculoskeletal: no muscle tenderness Neurologic: AAOx3 Psychiatric: interacting appropriately ICD10 Worksheet Patient Problems: Problems Problem Status Onset Renal colic on left side Acute Altered mental status Acute Small bowel obstruction Acute
[2016-10-11] MEDS ORDERED: LIDOCAINE 2% JELLY 20 ML (UROJECT) ONE (10:58)
[2016-10-11] MEDS ORDERED: IOPAMIDOL (ISOVUE-300) 150 ML BTL ONE (10:58)
[2016-10-11] MEDS ORDERED: LR 1,000 ML IV ONE ×2 (10:58→11:31)
[2016-10-11] MEDS ORDERED: levOFLOXACIN 500 MG/DEXTROSE 100 ML IV ONE (12:00)
[2016-10-11] MEDS ORDERED: ONDANSETRON 4 MG/2 ML VIAL IVP ONE (12:32)
[2016-10-11] MEDS ORDERED: MIDAZOLAM 2 MG/2 ML VIAL IVP ONE (12:32)
--- NOTE | 2016-10-11 12:34 | PDANEPAE ---
ANE History of Present Illness renal calculi ANE Past Medical History - Pulmonary History Hx Oxygen in Use at Home: No Hx Sleep Apnea: No Sleep Apnea Screening Result - Last Documented: Negative - Endocrine History Hx Diabetes: No - Chronic Pain History Chronic Pain: No ANE Patient History - Allergies Allergies/Adverse Reactions: No Known Allergies Allergy (Verified 12/28/14 10:53) - Home Medications Home Medications: Cyanocobalamin [Vitamin B12 1000MCG/ML (*)] 1,000 mcg IM Q14D 09/07/16 [Last Taken 4 Days Ago] - NPO status NPO Since - Liquids (Date): 10/11/16 NPO Since - Liquids (Time): 00:00 NPO Since - Solids (Date): 10/10/16 - Smoking Hx Smoking Status: Never smoked ANE Labs/Vital Signs - Labs Result Diagrams: 10/11/16 04:53 10/11/16 04:53 - Vital Signs Blood Pressure: 106/61 Heart Rate: 55 Respiratory Rate: 16 O2 Sat (%): 90 Height: 167.64 cm Weight: 52.9 kg ANE Physical Exam - Airway Neck exam: FROM Mallampati Score: Class 1 Mouth exam: normal dental/mouth exam - Pulmonary Pulmonary: no respiratory distress - Cardiovascular Cardiovascular: regular rate and rhythym - ASA Status ASA Status: I
--- NOTE | 2016-10-11 12:34 | PDANEPAE ---
Anesthesia PST Note Patient's labs reviewed and patient appropriate for surgery: Yes
[2016-10-11] MEDS ORDERED: PROPOFOL 200 MG/20 ML VIAL ONE ×2 (13:02)
[2016-10-11] MEDS ORDERED: ONDANSETRON 4 MG/2 ML VIAL ONE (13:19)
[2016-10-11] MEDS ORDERED: DEXAMETHASONE 4 MG/ML VIAL ONE (13:19)
[2016-10-11] MEDS ORDERED: fentaNYL 100 MCG/2 ML INJ ONE (13:31)
[2016-10-11] MEDS ORDERED: fentaNYL 100 MCG/2 ML INJ IVP PRN (13:48)
[2016-10-11] MEDS ORDERED: NALOXONE HCL 0.4 MG/ML INJ IVP PRN (13:48)
[2016-10-11] MEDS ORDERED: HYDROmorphONE/DILAUDID 1 MG/ML SYR IVP PRN (13:48)
--- NOTE | 2016-10-11 14:10 | POSTOPPROG ---
Post Op Note Date of Operation: 10/11/16 Surgeon: Isreal Medina (# [id number]) Anesthesia: LMA Pre-op Diagnosis: Multiple left ureteral calculi Post-op Diagnosis: Multiple distal left ureteral calculi Procedure: Ureteroscopy w/ laser lithotripsy & stent placement Findings: See op note Inf/Abcess present in the surg proc area at time of surgery?: No EBL: Minimal Complications: None Drains: Other (4.7 Fr. x 24 cm left ureteral stent) Specimen(s): Left ureteral calculus fragments Text Box - Additional Text Additional Text: To RR in stable condition. She may be discharged whenever deemed appropriate, either later today or tomorrow. She should be discharged on narcotic of choice and Pyridium 200 mg TID. She needs to FU in my office in 2-3 weeks for ureteral stent removal.
--- NOTE | 2016-10-11 14:10 | POSTANESTH ---
Post Anesthetic Evaluation Cardiovascular Status: Normal, Stable Respiratory Status: Normal, Stable Level of Consciousness/Mental Status: Can Participate in Eval Pain Control: Adequate, Prn Tx Ordered Nausea/Vomiting Control: Adequate, Prn Tx Ordered Complications Possibly Related to Anesthesia: None Noted
[2016-10-11] MEDS ORDERED: KETOROLAC 15 MG/1 ML SDV ONE (14:35)
[2016-10-11] MEDS: PHENAZOPYRIDINE HCL 200 MG TAB PO SCH ×2 (15:17→17:04)
[2016-10-11] MEDS ORDERED: HYDROCODONE/APAP 5/325 TAB PO PRN (15:32)
[2016-10-11 16:04] VITALS: RESP 14; O2SAT 91
[2016-10-11 17:06] VITALS: BP 123/64; PULSE 58; TEMP 98.4
--- NOTE | 2016-10-12 04:44 | GDS ---
[f rep st] DISCHARGE SUMMARY DISCHARGE DIAGNOSES: 1. Nephrolithiasis with moderate left-sided hydronephrosis. 2. History of small bowel obstruction. 3. Anemia. HISTORY OF PRESENT ILLNESS: Briefly, the patient is a very sweet 71-year-old female with a history of nephrolithiasis many times. She presented to the emergency room with left-sided flank pain. She had nausea, vomiting, abdominal pain, and gross hematuria. She had a CT of the abdomen without con trast. This showed moderate left-sided hydronephrosis with a dilated left ureter, dominant 7 x 4.5 x 5 mm calculus, 2 adjacent smaller 3 mm calculus just proximal to this. She has bilateral nephroli thiasis with at least 10 nonobstructive calculi in each kidney. She was seen and evaluated by Dr. Olga tenorio. She had a ureteral scope with laser lithotripsy and stent placement. She did very well with this procedure. She will follow up with Dr. Medina in about 2-3 weeks for ureteral stent removal. She will get a prescription for [place] and Pyridium. HOSPITAL COURSE PER PROBLEM: 1. Nephrolithiasis with moderate left-sided hydronephrosis and dilated left ureter. She is status post procedure with Dr. Medina. She is markedly improved and will follow up with him in the outpati ent setting. 2. History of small bowel obstruction. No symptoms. 3. Anemia. Recommending further followup with her primary care provider. DISCHARGE CONDITION: Stable. PHYSICAL EXAMINATION: VITAL SIGNS: Blood pressure is 127/67, heart rate is 54, respiratory rate is 14, O2 sats on room air are 91%, temperature is 36.3 Celsius. MEDICATIONS AT DISCHARGE: Please see the EMR. DISCHARGE INSTRUCTIONS: 1. To follow up with Dr. Medina in the next 2-3 weeks. 2. She will get a prescription of #10 of [place], recommending a half to 1 tab if she should have sev ere pain. Recommend she take ibuprofen or Tylenol. 3. Stay well hydrated. 4. Further workup in regard to her anemia. I will call Dr. Blanco and inform her of her patient's a dmission and discharge. Copy requested to: Dr. Medina /[id number]/MODL
--- NOTE | 2016-10-12 12:15 | GOP ---
[f rep st] OPERATIVE REPORT DATE OF OPERATION: 10/11/2016 SURGEON: Isreal Medina MD ANESTHESIA: Laryngeal mask. PREOPERATIVE DIAGNOSIS: Symptomatic multiple left ureteral calculi. POSTOPERATIVE DIAGNOSIS: Multiple symptomatic distal left ureteral calculi. PROCEDURE PERFORMED: 1. Cystourethroscopy, left retrograde pyelography. 2. Left ureteroscopy with holmium laser calculus lithotripsy and basket extraction. 3. Left ureteral stent placement (4.7-Macanese by 24 cm). FINDINGS: Obstructing distal left ureteral calculi. ESTIMATED BLOOD LOSS: Minimal. INDICATIONS: This woman was admitted, at this point, with a longstanding history of nephrolithiasis . Was admitted yesterday with symptoms related to recurrent stones. She presents for operative man agement at this time. The indications for the procedures as well as potential risks and complicatio ns were discussed with the patient preoperatively. She appeared to understand, her questions were a nswered, and she wished to proceed. Written informed surgical consent was thereafter obtained. DESCRIPTION OF PROCEDURE: The patient was brought to the operating room and administered laryngeal mask anesthesia. She was carefully placed in the dorsal lithotomy position on the cystoscopic table , utilizing stirrups. The genital area was sterilely prepped with Betadine scrub and paint, and the n draped in usual sterile fashion. Cystoscopy was performed with a 30-degree lens through a 22-Fren ch sheath. Urethra was unremarkable. Bladder was mildly to moderately trabeculated, but without ar eas of abnormal erythema, tumors, nor foreign bodies. Ureteral orifices were normal in regard to sh ape and position along the trigone. Cone-tipped catheter was used to perform retrograde pyelography on the left side. This revealed per sistence of contrast from the patient's admission CT scan, but abruptly ended in the distal ureter. Retrograde injection of contrast confirmed a filling defect in the distal ureter, but no other obvi ous abnormalities appreciated, with the exception of [id number] dilatation of the ureter and c ollecting system diffusely. I passed a 0.035 inch, angle-tipped, hydrophilic guidewire up the left ureter until it was seen within the renal collecting system fluoroscopically. The distal ureter was dilated with a 4 cm balloon by maintaining a pressure of 16 atmospheres for about 4 minutes. The b alloon dilator and cystoscope were then removed while keeping the guidewire in place. Semi-rigid ur eteroscopy was performed. A dominant large calculus was seen in the distal ureter. There were appr oximately 2 other smaller calculi noted in close proximity. I used a 365 micron holmium laser fiber to perform complete fragmentation. Some of the small fragments were retrieved with a 0-tipped ston e basket to be sent for analysis. The ureteroscope was re-inserted and advanced into the proximal a spect, and no other abnormalities were seen. The ureteroscope was removed and the cystoscope was ba ck loaded over the guidewire. A 4.7-[place] by 24 cm hydrophilic ureteral stent was advanced over th e guidewire until it was properly positioned and seen fluoroscopically in the kidney and cystoscopic ally in the bladder. The bladder was then drained of all return, which was relatively clear. The i nstruments were removed and 20 cc of 2% lidocaine injected transurethrally for postoperative analges ic purposes. The patient was then awakened, transferred to her bed, then taken to the recovery room . She tolerated the procedure well overall. COMPLICATIONS: None. DISPOSITION: She was transferred to the recovery room in stable condition. She can be discharged o are meeting standard criteria, particularly when she is adequately voiding and comfortable, as well as tolerating oral intake well. She will need to return to my office in approximately 2-3 weeks for ureteral stent removal. /[id number]/MODL
== END 2016-10-11 17:30 | disposition home or self-care (01) ==
LOC: F3E 15:29
PROVIDERS: ADMIT Internal Medicine; ATTEND Specialist
PROC: 0T9180Z Drainage of Left Kidney with Drainage Device, Via Natural or Artificial Opening Endoscopic (ICD-10-PCS; principal; 2016-10-10)
PROC: 0TC18ZZ Extirpation of Matter from Left Kidney, Via Natural or Artificial Opening Endoscopic (ICD-10-PCS; principal; 2016-10-10)
DX: N13.2 Hydronephrosis with renal and ureteral calculous obstruction (principal)
CPT/HCPCS: 52356; 74177; 76001; C1726; C1758; C1769; C2625; G0378; J1100; J1170; J1885; J1956; J2250; J2405; J2704; J3010; Q9967; 82365-90; 82947-QW; 96374

== ENCOUNTER 2016-10-16 04:26 | Emergency (ER) | payer OTHER ==
[2016-10-16] MEDS ORDERED: fentaNYL 100 MCG/2 ML INJ IVP ONE ×2 (04:35→05:25)
[2016-10-16] MEDS ORDERED: ONDANSETRON 4 MG/2 ML VIAL IVP ONE (04:35)
[2016-10-16] MEDS ORDERED: NS 1,000 ML IV ONE (04:35)
--- NOTE | 2016-10-16 04:35 | EDPHY ---
H & P Stated Complaint: R flank pian Source: Patient - Personal History Current Tetanus/Diphtheria Vaccine: Yes Current Tetanus Diphtheria and Acellular Pertussis (TDAP): Yes Tetanus Vaccine Date: <10YRS - Medical/Surgical History Hx Asthma: No Hx Chronic Respiratory Disease: No Hx Diabetes: No Hx Cardiac Disease: No Hx Renal Disease: No Hx Cirrhosis: No Hx Alcoholism: No Hx HIV/AIDS: No Hx Splenectomy or Spleen Trauma: No Other PMH: kidney stones. sbo - Social History Smoking Status: Never smoked HPI/ROS: HPI CHIEF COMPLAINT: Right flank pain, sudden onset, sharp stabbing, nausea vomiting HISTORY OF PRESENT ILLNESS: Patient is a 71-year-old female, significant past medical history for extensive amount of kidney stones, she has had recent treatment by Dr. medina who is her urologist. She has a stent in her left ureter. She is known to have kidney stones in both kidneys. She states that around 2:00 a.m. she woke up sudden onset sharp stabbing right flank pain with associated nausea vomiting. No fever. No urinary symptoms. No abdominal pain no chest pain or shortness of breath. Denies headache or neck pain. Main complaint right flank pain. Past Medical History: Extensive kidney stone history, SBO Past Surgical History: Laser in her kidney stones, ureteral stent placement Social History: Denies daily use of drugs alcohol tobacco products Family History: Noncontributory ROS REVIEW OF SYSTEMS: A comprehensive 10 point review of systems is otherwise negative aside from elements mentioned in the history of present illness. Exam Constitutional appears well nontoxic, however appears uncomfortable, triage nursing summary reviewed, vital signs reviewed, awake/alert. Eyes normal conjunctivae and sclera, EOMI, PERRLA. HENT normal inspection, atraumatic, moist mucus membranes, no epistaxis, neck supple/ no meningismus, no raccoon eyes. Respiratory clear to auscultation bilaterally, normal breath sounds, no respiratory distress, no wheezing. Cardiovascular rate normal, regular rhythm, no murmur, no edema, distal pulses normal. Gastrointestinal soft, non-tender, no rebound, no guarding, normal bowel sounds, no distension, no pulsatile mass. Genitourinary tender palpation right CVA, Musculoskeletal no midline vertebral tenderness, full range of motion, no calf swelling, no tenderness of extremities, no meningismus, good pulses, neurovascularly intact. Skin pink, warm, & dry, no rash, skin atraumatic. Neurologic awake, alert and oriented x 3, AAOx3, moves all 4 extremities equally, motor intact, sensory intact, CN II-XII intact, normal cerebellar, normal vision, normal speech. Psychiatric normal mood/affect. Heme/Lymph/Immune no lymphadenopathy. Differential Diagnosis: Includes but is not limited to in a particular order kidney stones, hydroureter, hydronephrosis, UTI, pyelonephritis, ruptured AAA Medical Decision Making: Plan for this patient IV establishment, IV fluid bolus , IV Zofran for nausea, IV fentanyl for acute pain control, check urinalysis, CT abdomen pelvis without contrast to help delineate this acute right flank pain. Re-evaluation: CT scan of the abdomen pelvis without IV contrast The results of the study are this shows a 7 mm right UVJ stone hydroureter present. The study was read by Dr. Cat I viewed the images myself on the PACS system. 1837: Re-evaluation at this time patient is resting comfortably she received 75 mcg IV fentanyl that controlled her pain well she also received 15 mg of IV Toradol and she has a normal creatnine. Her pain is well controlled she is resting comfortably. Not vomiting. She is agreeable going home. I did explain that she has a 7 mm right-sided stone that needs follow up with her urologist. She already has nausea medicine and pain medicine at home. She does understand return precautions includes worsening abdominal pain, vomiting, fever flank pain or any questions or concerns. She should return emergency room. She understands this. She also understands she should see Dr. Medina this week. Drink lots of fluid. (Ricardo Moreno) Constitutional: Initial Vital Signs Temperature (C) 37 C 10/16/16 04:31 Heart Rate 54 L 10/16/16 04:31 Respiratory Rate 16 10/16/16 04:31 Blood Pressure 157/82 H 10/16/16 04:31 O2 Sat (%) 95 10/16/16 04:31 O2 Delivery Mode Room Air O2 (L/minute) 2 Allergies/Adverse Reactions: No Known Allergies Allergy (Verified 12/28/14 10:53) Home Medications: Medication Instructions Recorded Cephalexin [Keflex (*)] 500 mg PO Q6 5 Days 10/16/16 Hydrocodone/APAP 5/325 [Platinum 1 - 2 tab PO Q4-6PRN PRN #20 tab 10/16/16 5/325 (*)] oxyCODONE/APAP 5/325 [Percocet 1 - 2 tab PO Q4-6PRN PRN #12 tab 10/16/16 5/325 (*)] Medical Decision Making ED Course/Re-evaluation: Results of urinalysis reviewed by myself. Results could represent early infection versus just inflammatory changes from kidney stone. Plan will be to put her on Keflex at 500 mg four times daily for 5 days. Otherwise, disposition and discharge as authored by Dr. Ricardo Moreno. (Walter Foley) - Data Points Laboratory Results: Laboratory Results 10/16/16 04:40 10/16/16 04:40 10/16/16 10/16/16 10/16/16 08:37 08:35 04:40 WBC RBC Hgb Hct MCV MCH MCHC RDW Plt Count MPV Neut % (Auto) Lymph % (Auto) [place] % (Auto) Eos % (Auto) Baso % (Auto) Nucleat RBC Rel Count Absolute Neuts (auto) Absolute Lymphs (auto) Absolute Monos (auto) Absolute Eos (auto) Absolute Basos (auto) Absolute Nucleated RBC Immature Gran % Immature Gran # Sodium 143 mEq/L mEq/L (134-144) Potassium 4.0 mEq/L mEq/L (3.5-5.2) Chloride 112 mEq/L H mEq/L (97-110) Carbon Dioxide 21 mEq/l L mEq/l (22-31) Anion Gap 10 mEq/L mEq/L (8-16) BUN 13 mg/dL mg/dL (7-23) Creatinine 0.9 mg/dL mg/dL (0.6-1.0) Estimated GFR > 60 Glucose 101 mg/dL H mg/dL (70-100) Calcium 9.0 mg/dL mg/dL (8.5-10.4) Total Bilirubin 0.4 mg/dL mg/dL (0.1-1.4) Conjugated Bilirubin 0.4 mg/dL mg/dL (0.0-0.5) Unconjugated Bilirubin 0.0 mg/dL mg/dL (0.0-1.1) AST 25 IU/L IU/L (14-46) ALT 36 IU/L IU/L (9-52) Alkaline Phosphatase 70 IU/L IU/L (38-126) Total Protein 5.8 g/dL L g/dL (6.3-8.2) Albumin 3.2 g/dL L g/dL (3.5-5.0) Lipase 93.0 IU/L IU/L (23-300) Urine Color RED Urine Appearance MODERATELY TURBID Urine pH 5.0 (5.0-7.5) Ur Specific [place] 1.016 (1.002-1.030) Urine Protein 2+ H (NEGATIVE) Urine Ketones NEGATIVE (NEGATIVE) Urine Blood 3+ H (NEGATIVE) Urine Nitrate NEGATIVE (NEGATIVE) Urine Bilirubin NEGATIVE (NEGATIVE) Urine Urobilinogen NEGATIVE EU EU (0.2-1.0) Ur Leukocyte Esterase TRACE H (NEGATIVE) Urine RBC Cancelled 50-182 /hpf H /hpf (0-3) Urine WBC Cancelled 5-10 /hpf H /hpf (0-3) Ur Epithelial Cells Cancelled NONE SEEN /lpf /lpf (NONE-1+) Ur Renal Epithelial Cell Cancelled Urine Crystals Cancelled Ammonium Urate Crystals Cancelled Calcium Carbonate Cryst Cancelled Calcium Phosphate Cryst Cancelled Calcium Oxalate Crystal Cancelled Leucine Crystals Cancelled Cystine Crystals Cancelled Uric Acid Crystals Cancelled Triple Phos Crystals Cancelled Sulfonamide Crystals Cancelled Cholesterol Crystals Cancelled Tyrosine Crystals Cancelled Bilirubin Crystals Cancelled Amorphous Sediment Cancelled Urine Bacteria Cancelled 1+ /hpf H /hpf (NONE SEEN) Epithelial Casts Cancelled Fatty Casts Cancelled Hyaline Casts Cancelled Granular Casts Cancelled Waxy Casts Cancelled Broad Casts Cancelled RBC Casts Cancelled WBC Casts Cancelled Urine Mucus Cancelled 1+ /lpf /lpf (NONE-1+) Urine Trichomonas Cancelled Urine Yeast Cancelled PRESENT /hpf /hpf (NONE SEEN) Urine Sperm Cancelled Ur Oval Fat Bodies Cancelled Ur Free Fat Droplets Cancelled Ur Culture Indicated? Cancelled INDICATED H (NI) Urine Glucose NEGATIVE (NEGATIVE) Urine Comment Cancelled 10/16/16 04:40 WBC 6.71 10^3/uL 10^3/uL (3.80-9.50) RBC 3.61 10^6/uL L 10^6/uL (4.18-5.33) Hgb 11.2 g/dL L g/dL (12.6-16.3) Hct 34.6 % L % (38.0-47.0) MCV 95.8 fL fL (81.5-99.8) MCH 31.0 pg pg (27.9-34.1) MCHC 32.4 g/dL g/dL (32.4-36.7) RDW 14.0 % % (11.5-15.2) Plt Count 287 10^3/uL 10^3/uL (150-400) MPV 9.1 fL fL (8.7-11.7) Neut % (Auto) 66.0 % % (39.3-74.2) Lymph % (Auto) 18.9 % % (15.0-45.0) [place] % (Auto) 8.5 % % (4.5-13.0) Eos % (Auto) 5.1 % % (0.6-7.6) Baso % (Auto) 0.9 % % (0.3-1.7) Nucleat RBC Rel Count 0.0 % % (0.0-0.2) Absolute Neuts (auto) 4.43 10^3/uL 10^3/uL (1.70-6.50) Absolute Lymphs (auto) 1.27 10^3/uL 10^3/uL (1.00-3.00) Absolute Monos (auto) 0.57 10^3/uL 10^3/uL (0.30-0.80) Absolute Eos (auto) 0.34 10^3/uL 10^3/uL (0.03-0.40) Absolute Basos (auto) 0.06 10^3/uL 10^3/uL (0.02-0.10) Absolute Nucleated RBC 0.00 10^3/uL 10^3/uL (0-0.01) Immature Gran % 0.6 % % (0.0-1.1) Immature Gran # 0.04 10^3/uL 10^3/uL (0.00-0.10) Sodium Potassium Chloride Carbon Dioxide Anion Gap BUN Creatinine Estimated GFR Glucose Calcium Total Bilirubin Conjugated Bilirubin Unconjugated Bilirubin AST ALT Alkaline Phosphatase Total Protein Albumin Lipase Urine Color Urine Appearance Urine pH Ur Specific [place] Urine Protein Urine Ketones Urine Blood Urine Nitrate Urine Bilirubin Urine Urobilinogen Ur Leukocyte Esterase Urine RBC Urine WBC Ur Epithelial Cells Ur Renal Epithelial Cell Urine Crystals Ammonium Urate Crystals Calcium Carbonate Cryst Calcium Phosphate Cryst Calcium Oxalate Crystal Leucine Crystals Cystine Crystals Uric Acid Crystals Triple Phos Crystals Sulfonamide Crystals Cholesterol Crystals Tyrosine Crystals Bilirubin Crystals Amorphous Sediment Urine Bacteria Epithelial Casts Fatty Casts Hyaline Casts Granular Casts Waxy Casts Broad Casts RBC Casts WBC Casts Urine Mucus Urine Trichomonas Urine Yeast Urine Sperm Ur Oval Fat Bodies Ur Free Fat Droplets Ur Culture Indicated? Urine Glucose Urine Comment Medications Given: Discontinued Medications Fentanyl (Sublimaze) 50 mcg IVP EDNOW ONE Stop: 10/16/16 04:36 Last Admin: 10/16/16 04:56 Dose: 50 mcg Fentanyl (Sublimaze) 25 mcg IVP EDNOW ONE Stop: 10/16/16 05:26 Last Admin: 10/16/16 05:28 Dose: 25 mcg Sodium Chloride (Ns) 1,000 mls @ 0 mls/hr IV EDNOW ONE; Wide Open PRN Reason: Protocol Stop: 10/16/16 04:36 Last Admin: 10/16/16 04:56 Dose: 1,000 mls Ketorolac Tromethamine (Toradol) 15 mg IVP EDNOW ONE Stop: 10/16/16 05:43 Last Admin: 10/16/16 05:45 Dose: 15 mg Ondansetron HCl (Zofran) 4 mg IVP EDNOW ONE Stop: 10/16/16 04:36 Last Admin: 10/16/16 04:56 Dose: 4 mg Departure - Departure Disposition: Home, Routine, Self-Care Clinical Impression: Kidney stone on right side, Possible urinary tract infection Condition: Good Instructions: Kidney Stones (ED), Renal Colic (ED), Flank Pain (ED) Additional Instructions: 1. You have a 7 mm kidney stone on the right side is towards the end of your right ureter. 2. You need to see your urologist about this early this week. 3. Please call to make an appointment. 4. Return to the emergency room if you have worsening pain vomiting fever or questions or concerns. 5.Ibuprofen dosin mg every 6 hours with meals for the next 3 days only. Referrals: Sadie Blanco MD [Primary Care Provider] - As per Instructions Isreal Medina MD [Medical Doctor] - As per Instructions Prescriptions: Cephalexin [Keflex (*)] 500 mg PO Q6 5 Days Hydrocodone/APAP 5/325 [Platinum 5/325 (*)] 1 - 2 tab PO Q4-6PRN PRN #20 tab PRN Reason: Pain, Moderate oxyCODONE/APAP 5/325 [Percocet 5/325 (*)] 1 - 2 tab PO Q4-6PRN PRN #12 tab PRN Reason: For Moderate To Severe Pain
[2016-10-16 04:50] LABS: % IMMATURE GRANULYOCYTES 0.6 % (0.0-1.1); ABSOLUTE IMMATURE GRANULOCYTES 0.04 10^3/uL (0.00-0.10); ADD DIFF? NO; ADD MORPH? NO; ADD SCAN? NO; ATYPICAL LYMPHOCYTE FLAG 10 (0-99); FRAGMENT RBC FLAG 0 (0-99); HEMATOCRIT 34.6 % (38.0-47.0); HEMOGLOBIN 11.2 g/dL (12.6-16.3); LEFT SHIFT FLG 10 (0-99); LIPEMIA HEMOLYSIS FLAG 80 (0-99); MEAN CELL HEMOGLOBIN CONCENTR. 32.4 g/dL (32.4-36.7); MEAN CELL VOLUME 95.8 fL (81.5-99.8); MEAN PLATELET VOLUME 9.1 fL (8.7-11.7); PLATELET CLUMPS FLAG 0 (0-99); PLATELET COUNT 287 10^3/uL (150-400); RED BLOOD CELL COUNT 3.61 10^6/uL (4.18-5.33)
[2016-10-16 05:05] LABS: ALANINE AMINOTRANSFERASE 36 IU/L (9-52); ALBUMIN 3.2 g/dL (3.5-5.0); ALKALINE PHOSPHATASE 70 IU/L (38-126); ANION GAP 10 mEq/L (8-16); ASPARTATE AMINOTRANSFERASE 25 IU/L (14-46); BILIRUBIN,TOTAL 0.4 mg/dL (0.1-1.4); BILIRUBIN-CONJUGATED 0.4 mg/dL (0.0-0.5); CARBON DIOXIDE 21 mEq/l (22-31); CHLORIDE 112 mEq/L (97-110); CREATININE 0.9 mg/dL (0.6-1.0); GLOMERULAR FILTRATION RATE > 60; GLUCOSE 101 mg/dL (70-100); SODIUM 143 mEq/L (134-144); TOTAL PROTEIN 5.8 g/dL (6.3-8.2)
[2016-10-16] MEDS ORDERED: KETOROLAC 15 MG/1 ML SDV IVP ONE (05:42)
[2016-10-16 08:45] LABS: COLOR RED; LEUKOCYTE ESTERASE,URINE TRACE (NEGATIVE); NITRITE,URINE NEGATIVE (NEGATIVE)
[2016-10-16 09:24] LABS: BACTERIA 1+ /hpf (NONE SEEN); MUCUS 1+ /lpf (NONE-1+); RBC,URINE 50-182 /hpf (0-3); YEAST PRESENT /hpf (NONE SEEN)
[2016-10-16 10:05] VITALS: BP 124/73; PULSE 49; RESP 18; TEMP 97.7; O2SAT 96
== END 2016-10-16 10:06 | disposition home or self-care (01) ==
DX: N20.0 Calculus of kidney (principal); E86.9 Volume depletion, unspecified
CPT/HCPCS: 74176; 96361; 96374; 96375; 96376; 99285; J1885; J2405; J3010

== ENCOUNTER → 2016-10-18 | Outpatient (CLI) | payer OTHER | LOC: FIMAGING 13:09 | PROVIDERS: ATTEND Specialist | DX: N20.0 Calculus of kidney (principal) ==

== ENCOUNTER → 2016-10-26 | Outpatient (CLI) | payer OTHER | LOC: BMCIMAGING 09:27 | PROVIDERS: ATTEND Internal Medicine | DX: I82.403 Acute embolism and thrombosis of unspecified deep veins of lower extremity, bilateral (principal) ==

== ENCOUNTER → 2016-12-20 | Outpatient (CLI) | payer OTHER | LOC: FIMAGING 12:55 | PROVIDERS: ATTEND Psychiatry & Neurology Neurology | DX: R41.3 Other amnesia (principal); R90.89 Other abnormal findings on diagnostic imaging of central nervous system ==

== ENCOUNTER → 2016-12-28 | Outpatient (CLI) | payer OTHER | LOC: BMCIMAGING 13:51 | PROVIDERS: ATTEND Podiatrist Foot & Ankle Surgery | DX: M19.071 Primary osteoarthritis, right ankle and foot (principal); M20.11 Hallux valgus (acquired), right foot ==

== ENCOUNTER → 2017-02-28 | Outpatient (CLI) | payer OTHER | LOC: BMCIMAGING 13:20 | PROVIDERS: ATTEND Internal Medicine | DX: I82.502 Chronic embolism and thrombosis of unspecified deep veins of left lower extremity (principal) ==

== ENCOUNTER 2017-05-21 08:22 | Emergency (ER) | payer OTHER ==
[2017-05-21 08:28] VITALS: RESP 16
[2017-05-21] MEDS ORDERED: ONDANSETRON 4 MG/2 ML VIAL ONE (08:36)
[2017-05-21] MEDS ORDERED: ONDANSETRON 4 MG/2 ML VIAL IVP ONE (08:38)
[2017-05-21] MEDS ORDERED: NS 1,000 ML IV ONE (08:38)
--- NOTE | 2017-05-21 08:38 | EDPHY ---
H & P Stated Complaint: "Dehydration" started vomiting this morning;had EGD/ colonoscopy Thurs Time Seen by Provider: 05/21/17 08:28 HPI/ROS: Chief Complaint: Vomiting, dehydration HPI: 72-year-old woman is presenting with nausea vomiting and dehydration. states she started vomiting this morning. She is status post a routine colonoscopy 3 days ago. Denies any abdominal pain. Has had similar episodes in the past and was diagnosed with small bowel obstructions. She also does have a history of kidney stones but denies any back pain or urinary symptoms. No fevers or chills. No chest pain or shortness of breath. No coffee grounds or blood in her vomit. Has been unable to keep anything down. Has had several episodes of this in the past has been states she has got herself into severe dehydration because of it. ROS: 10 point Review of Systems is negative except as noted in the HPI. PMH: Kidney stones, bowel obstructions, dehydration Social History: No smoking, no alcohol, no recreational drug use Family History: non-contributory Physical Exam: Gen: Awake, Alert, No Distress HEENT: Nose: no rhinorrhea Eyes: PERRLA, EOMI Mouth: Dry mucosa Neck: Supple, no JVD Chest: nontender, lungs clear to auscultation Heart: S1, S2 normal, no murmur Abd: Soft, non-tender, no guarding Back: no CVA tenderness, no midline tenderness Ext: no edema, non-tender Skin: no rash Neuro: CN II-XII intact, Sensation grossly intact, Strength 5/5 in bilateral upper and lower extremities - Personal History Current Tetanus Diphtheria and Acellular Pertussis (TDAP): Yes Tetanus Vaccine Date: <10YRS - Medical/Surgical History Hx Asthma: No Hx Chronic Respiratory Disease: No Hx Diabetes: No Hx Cardiac Disease: No Hx Renal Disease: No Hx Cirrhosis: No Hx Alcoholism: No Hx HIV/AIDS: No Hx Splenectomy or Spleen Trauma: No Other PMH: kidney stones. sbo - Social History Smoking Status: Never smoked Constitutional: Initial Vital Signs Temperature (C) 36.4 C 05/21/17 08:26 Heart Rate 62 05/21/17 08:26 Respiratory Rate 16 05/21/17 08:26 Blood Pressure 189/82 H 05/21/17 08:26 O2 Sat (%) 98 05/21/17 08:26 O2 Delivery Mode Room Air Allergies/Adverse Reactions: No Known Allergies Allergy (Verified 05/21/17 08:22) Home Medications: Medication Instructions Recorded NK [No Known Home Meds] 05/21/17 Medical Decision Making - Diagnostics EKG Interpretation: ECG time 8:45 a.m., sinus rhythm with a rate of 59, normal axis, normal intervals, no acute ST or T-wave changes. Impression: Normal ECG. Imaging Results: Imaging Impressions Abdomen CT 05/21/17 08:38 Impression: 1. Query constipation. No significant small bowel dilatation is seen to suggest mechanical small bowel obstruction. 2. Spinal degenerative changes and probable spinal canal stenosis. 3. Nephrolithiasis without obstructive uropathy. 4. See above report for additional findings. Results called and discussed with Murphy Collins MD on 05/21/2017 at 11:16 ED Course/Re-evaluation: Patient is feeling improved. She is tolerating p.o.. No further vomiting. CT scan negative for acute obstruction. She would like to go home. Will discharge with follow-up as an outpatient. - Data Points Laboratory Results: Laboratory Results 05/21/17 08:45 05/21/17 08:45 05/21/17 05/21/17 05/21/17 10:00 08:45 08:45 WBC 6.04 10^3/uL 10^3/uL (3.80-9.50) RBC 4.21 10^6/uL 10^6/uL (4.18-5.33) Hgb 12.1 g/dL L g/dL (12.6-16.3) Hct 39.0 % % (38.0-47.0) MCV 92.6 fL fL (81.5-99.8) MCH 28.7 pg pg (27.9-34.1) MCHC 31.0 g/dL L g/dL (32.4-36.7) RDW 14.1 % % (11.5-15.2) Plt Count 354 10^3/uL 10^3/uL (150-400) MPV 9.1 fL fL (8.7-11.7) Neut % (Auto) 45.3 % % (39.3-74.2) Lymph % (Auto) 27.0 % % (15.0-45.0) [place] % (Auto) 10.8 % % (4.5-13.0) Eos % (Auto) 15.1 % H % (0.6-7.6) Baso % (Auto) 1.5 % % (0.3-1.7) Nucleat RBC Rel Count 0.0 % % (0.0-0.2) Absolute Neuts (auto) 2.74 10^3/uL 10^3/uL (1.70-6.50) Absolute Lymphs (auto) 1.63 10^3/uL 10^3/uL (1.00-3.00) Absolute Monos (auto) 0.65 10^3/uL 10^3/uL (0.30-0.80) Absolute Eos (auto) 0.91 10^3/uL H 10^3/uL (0.03-0.40) Absolute Basos (auto) 0.09 10^3/uL 10^3/uL (0.02-0.10) Absolute Nucleated RBC 0.00 10^3/uL 10^3/uL (0-0.01) Immature Gran % 0.3 % % (0.0-1.1) Immature Gran # 0.02 10^3/uL 10^3/uL (0.00-0.10) Sodium 145 mEq/L mEq/L (135-145) Potassium 4.0 mEq/L mEq/L (3.5-5.2) Chloride 109 mEq/L mEq/L (97-110) Carbon Dioxide 24 mEq/l mEq/l (22-31) Anion Gap 12 mEq/L mEq/L (8-16) BUN 13 mg/dL mg/dL (7-23) Creatinine 0.8 mg/dL mg/dL (0.6-1.0) Estimated GFR > 60 Glucose 101 mg/dL H mg/dL (70-100) Calcium 9.7 mg/dL mg/dL (8.5-10.4) Total Bilirubin 0.4 mg/dL mg/dL (0.1-1.4) AST 27 IU/L IU/L (14-46) ALT 31 IU/L IU/L (9-52) Alkaline Phosphatase 72 IU/L IU/L (38-126) Troponin I < 0.012 ng/mL ng/mL (0.000-0.034) Total Protein 7.2 g/dL g/dL (6.3-8.2) Albumin 4.1 g/dL g/dL (3.5-5.0) Lipase 168 IU/L IU/L (23-300) Urine Color YELLOW Urine Appearance CLEAR Urine pH 6.0 (5.0-7.5) Ur Specific [place] 1.028 (1.002-1.030) Urine Protein NEGATIVE (NEGATIVE) Urine Ketones NEGATIVE (NEGATIVE) Urine Blood NEGATIVE (NEGATIVE) Urine Nitrate NEGATIVE (NEGATIVE) Urine Bilirubin NEGATIVE (NEGATIVE) Urine Urobilinogen NEGATIVE EU EU (0.2-1.0) Ur Leukocyte Esterase NEGATIVE (NEGATIVE) Urine Glucose NEGATIVE (NEGATIVE) Medications Given: Discontinued Medications Sodium Chloride (Ns) 1,000 mls @ 0 mls/hr IV ONCE ONE; Wide Open PRN Reason: Protocol Stop: 05/21/17 08:39 Last Admin: 05/21/17 08:41 Dose: 1,000 mls Ondansetron HCl (Zofran) 4 mg IVP EDNOW ONE Stop: 05/21/17 08:39 Last Admin: 05/21/17 08:41 Dose: 4 mg Departure - Departure Disposition: Home, Routine, Self-Care Clinical Impression: Constipation, Dehydration Condition: Good Instructions: Constipation (ED), Dehydration (ED) Additional Instructions: Follow up with your primary care physician in 2-3 days for further evaluation. Make sure to drink plenty of clear liquids, at least 8, 8 oz glasses of water a day. Return to the emergency department for return of nausea vomiting, worsening abdominal pain, fevers or chills, confusion, or any other concerns. Referrals: Sadie Blanco MD [Primary Care Provider] - As per Instructions
--- NOTE | 2017-05-21 08:46 | CPEKG ---
Heart Rate: 59 RR Interval: 1017 P-R Interval: 184 QRSD Interval: 100 QT Interval: 476 QTC Interval: 472 P [place]: 69 QRS [place]: -11 T Wave [place]: 26 EKG Severity - NORMAL ECG - EKG Impression: SINUS RHYTHM Electronically Signed By: Murphy Collins 21-May-2017 08:55:36
[2017-05-21] MEDS ORDERED: IOPAMIDOL (ISOVUE-300) 100 ML BTL ONE (08:47)
[2017-05-21 08:50] LABS: PLATELET COUNT 354 10^3/uL (150-400)
[2017-05-21 13:03] VITALS: BP 158/84; PULSE 86; TEMP 98.2; O2SAT 98
== END 2017-05-21 13:03 | disposition home or self-care (01) ==
DX: E86.0 Dehydration (principal); K59.00 Constipation, unspecified; E86.9 Volume depletion, unspecified
CPT/HCPCS: 74177; 93005; 96361; 96374; 99285; J2405; Q9967

== ENCOUNTER 2017-05-24 09:01 | Observation (INO) | payer OTHER ==
--- NOTE | 2017-05-24 09:46 | EDPHY ---
HPI/HX/ROS/PE/MDM Narrative: CHIEF COMPLAINT: Altered mental status, vomiting HPI: This patient is a 72 year old female presenting with altered mental status and persistent vomiting. She was evaluated 05/21, three days ago, for similar symptoms and treated for dehydration. She initially felt better after discharge. Last night, she began vomiting again. Her family member at bedside states is is difficult in general to encourage her to eat or drink, and she becomes irritable when questions about this. When she is dehydrated, she also becomes incoherent, confused, and unable to remember people around her. There has been consideration of dementia. The patient has had other similar episodes in the past and was diagnosed with small bowel obstructions. She underwent colonoscopy one week ago, which was clear. No fevers or chills, chest pain, flank pain, shortness of breath. No hematemesis or hematochezia. No recent trauma. Of note, the patient was admitted one year ago for similar symptoms and failure to thrive. HPI obtained primarily from family member at bedside. REVIEW OF SYSTEMS: Aside from elements discussed in the HPI, a comprehensive 10-point review of systems was reviewed and is negative. PMH: Colonoscopy one week ago Monday, clear. Generally takes Adderall and Tylenol regularly. Discontinued these recently and takes no other medications. History of small bowel obstructions. History of kidney stones. SOCIAL HISTORY: Family member at bedside. Lives in [place]. Retired. PCP Dr. Blanco. PHYSICAL EXAM: General:Patient opens eyes to command. ENT:Eyes are normal to inspection. ENT inspection normal. Neck: Normal inspection. Full range of motion. Respiratory:No respiratory distress. Breath sounds normal bilaterally. Cardiovascular: Regular rate and rhythm. Strong peripheral pulses. Normal cap refill. Abdomen:The abdomen is nontender to palpation. There are no peritoneal signs. There are normal bowel sounds. Back: Normal to inspection. No tenderness to palpation. Skin: Normal color. Decreased turgor. No rash. Warm and dry. Extremities: Normal appearance. Full range of motion. Neuro: Oriented x3. Normal motor function. Normal sensory function. ED Course: 72 year old female presents with altered mental status and persistent vomiting. Plan for labs including CBC, chemistries, UA, Troponin. Plan for CT head. Laboratory studies largely unremarkable. UA negative for UTI. 12:[address] Cat, radiologist. CT head negative for acute processes. 12:14 Reassessed. Discussed results. Offered admission. Family is comfortable with this plan. 12:32 Spoke with hospitalist service. Dr. Barron accepts admission for altered mental status, failure to thrive. MDM: This patient presents with somewhat chronic decrease in oral intake and altered mental status. No clear etiology is apparent on ED workup. I see no indication of CVA, brain tumor, intracranial bleed, hyponatremia or renal failure. - Data Points Imaging Results: Imaging Impressions Head CT 05/24/17 11:31 Impression: 1. No acute intracranial findings. 2. Diffuse cerebral atrophy with periventricular and subcortical low attenuation consistent with chronic microvascular ischemic gliosis. Findings discussed with Raji Mares MD on 05/24/2017 at 12:06. Imaging: Discussed imaging studies w/ calliope player Radiologist Laboratory Results: Laboratory Results 05/24/17 09:30 05/24/17 09:30 05/24/17 05/24/17 05/24/17 12:00 09:30 09:30 WBC 4.92 10^3/uL 10^3/uL (3.80-9.50) RBC 4.84 10^6/uL 10^6/uL (4.18-5.33) Hgb 13.9 g/dL g/dL (12.6-16.3) Hct 43.2 % % (38.0-47.0) MCV 89.3 fL fL (81.5-99.8) MCH 28.7 pg pg (27.9-34.1) MCHC 32.2 g/dL L g/dL (32.4-36.7) RDW 14.1 % % (11.5-15.2) Plt Count 368 10^3/uL 10^3/uL (150-400) MPV 9.3 fL fL (8.7-11.7) Neut % (Auto) 66.7 % % (39.3-74.2) Lymph % (Auto) 15.9 % % (15.0-45.0) [place] % (Auto) 8.9 % % (4.5-13.0) Eos % (Auto) 7.1 % % (0.6-7.6) Baso % (Auto) 1.2 % % (0.3-1.7) Nucleat RBC Rel Count 0.0 % % (0.0-0.2) Absolute Neuts (auto) 3.28 10^3/uL 10^3/uL (1.70-6.50) Absolute Lymphs (auto) 0.78 10^3/uL L 10^3/uL (1.00-3.00) Absolute Monos (auto) 0.44 10^3/uL 10^3/uL (0.30-0.80) Absolute Eos (auto) 0.35 10^3/uL 10^3/uL (0.03-0.40) Absolute Basos (auto) 0.06 10^3/uL 10^3/uL (0.02-0.10) Absolute Nucleated RBC 0.00 10^3/uL 10^3/uL (0-0.01) Immature Gran % 0.2 % % (0.0-1.1) Immature Gran # 0.01 10^3/uL 10^3/uL (0.00-0.10) Sodium 141 mEq/L mEq/L (135-145) Potassium 4.5 mEq/L mEq/L (3.5-5.2) Chloride 110 mEq/L mEq/L (97-110) Carbon Dioxide 21 mEq/l L mEq/l (22-31) Anion Gap 10 mEq/L mEq/L (8-16) BUN 13 mg/dL mg/dL (7-23) Creatinine 0.8 mg/dL mg/dL (0.6-1.0) Estimated GFR > 60 Glucose 123 mg/dL H mg/dL (70-100) Calcium 9.9 mg/dL mg/dL (8.5-10.4) Troponin I < 0.012 ng/mL ng/mL (0.000-0.034) Urine Color PALE YELLOW Urine Appearance CLEAR Urine pH 5.0 (5.0-7.5) Ur Specific [place] 1.010 (1.002-1.030) Urine Protein NEGATIVE (NEGATIVE) Urine Ketones TRACE H (NEGATIVE) Urine Blood NEGATIVE (NEGATIVE) Urine Nitrate NEGATIVE (NEGATIVE) Urine Bilirubin NEGATIVE (NEGATIVE) Urine Urobilinogen NEGATIVE EU EU (0.2-1.0) Ur Leukocyte Esterase NEGATIVE (NEGATIVE) Urine Glucose NEGATIVE (NEGATIVE) General Time Seen by Provider: 05/24/17 09:22 Initial Vital Signs: Initial Vital Signs Temperature (C) 36.4 C 05/24/17 09:11 Heart Rate 60 05/24/17 09:11 Respiratory Rate 18 05/24/17 09:11 Blood Pressure 167/96 H 05/24/17 09:11 O2 Sat (%) 98 05/24/17 09:11 O2 Delivery Mode Room Air Allergies/Adverse Reactions: No Known Allergies Allergy (Verified 05/24/17 09:10) Home Medications: Medication Instructions Recorded Escitalopram Oxalate [Lexapro 10 10 mg PO DAILY 05/24/17 MG] Omeprazole 40 mg PO DAILY 05/24/17 Departure - Departure Disposition: [facility] Acute Clinical Impression: Failure to thrive in adult Altered mental status Qualifiers: Altered mental status type: unspecified Qualified Code(s): R41.82 - Altered mental status, unspecified Condition: Fair Report Scribed for: Raji Mares Report Scribed by: Maria Luisa Velásquez Date of Report: 05/24/17 Time of Report: 09:54 Physician Review and Approval Statement: Portions of this note were transcribed by an ED scribe. I personally performed the history, physical exam, and medical decision making; and confirm the accuracy of the information in the transcribed note.
[2017-05-24 09:50] LABS: PLATELET COUNT 368 10^3/uL (150-400)
[2017-05-24] MEDS ORDERED: ONDANSETRON DISINTEGRATING 4 MG TAB PO PRN (13:29)
[2017-05-24] MEDS ORDERED: NS 1,000 ML IV ONE (13:29)
--- NOTE | 2017-05-24 14:04 | GHP ---
[f rep st] HISTORY AND PHYSICAL DATE OF ADMISSION: 05/24/2017 CHIEF COMPLAINT: Confusion. HISTORY OF PRESENT ILLNESS: A 72-year-old female with limited past medical history, who presents wit h her with complaint of confusion. Patient has had waxing and waning clarity of thought proc ess over the course of the last 2 weeks. Patient presented to the emergency department on 05/21/2017 , with some nausea, vomiting, and also confusion at the time. CT of the abdomen at the time showed no acute findings. The patient was hydrated, had improvement in her symptoms, and was discharged back to home. describes that the patient was well again fo r several days, and then in the course of the last 24 hours has redeveloped some minimal nausea and v omiting, and has again become confused. Per the , there have been discussions in the outpatie nt setting about the patient having baseline cognitive deficits and/or dementia. She has had previou s hospitalizations where her mental status has suffered in the setting of dehydration. He has noted memory loss and confusion intermittently over the course of the last year or so. Patient reports feeling fearful in the emergency department of the environment she is in. Denies any chest pain. Denies shortness of breath. Denies abdominal discomfort. Denies diarrhea. re ports that she has been taking very little fluid or food intake recently. She has remained active, o n some days walking up to 2 hours a day. Denies any recent cough, subjective fevers, or known sick c ontacts. PAST MEDICAL HISTORY: 1. History of nephrolithiasis. 2. History of a small bowel obstruction. 3. Several previous hospitalizations with altered mental status and no identifiable cause. 4. Chronic peripheral neuropathy. SOCIAL HISTORY: No tobacco, alcohol or illicit drugs. FAMILY HISTORY: Negative for any known cognitive deficits or dementia. REVIEW OF SYSTEMS: 10-point review of systems is negative with the exception of that reported in the HPI. PHYSICAL EXAMINATION: VITAL SIGNS: Blood pressure is 158/86, respiratory rate 16, 98% on room air. 36.8. GENERAL: This is a thin, healthy-appearing elderly female who appears frightened on examinat ion. HEENT: Exam is notable for dry mucous membranes. Eye exam is negative for any icterus. CARDI AC: Patient is regular rate and rhythm. PULMONARY: Good respiratory effort. Clear to auscultation bilaterally. GASTROINTESTINAL: Abdomen is thin, nontender to palpation in all 4 quadrants. MUSCUL OSKELETAL: Negative for any lower extremity edema. SKIN: Exam is negative for any rashes. NEUROLO GIC: Patient is alert and oriented x1 to self only. She has sensation throughout, is moving all 4 e xtremities. Gait was not examined. DATA: Noncontrast CT of the head, which I personally reviewed and interpreted, shows no acute intrac ranial findings. Radiology comments on diffuse cerebral atrophy. LABORATORY: White count 4.9, hematocrit 43.2, which is above her recent baseline. Creatinine 0.8, s odium 141. Troponin less than 0.012. ASSESSMENT AND PLAN: This is a 72-year-old female with limited past medical history, presenting with confusion. 1. Acute confusion/encephalopathy. Based on the history of patient's examination, I suspect we like ly are seeing an underlying cognitive abnormality/deficit with concurrent dehydration potentiating alexx dempsey's mental status abnormalities. Will start by checking urinalysis, ruling out occult infection, and hydrating the patient with IV normal saline. Based on preceding hospitalizations, it sounds as if the patient responds well to hydration alone. I am hopeful we will see some improvement. I do th ink, however, discussions with the primary care and potentially neurocognitive evaluation as outpatie nt would be appropriate to make an underlying dementia diagnosis and initiate treatment. We will do our inpatient workup to rule out any reversible causes of confusion this evening. 2. Elevated blood pressure. Patient historically does not have high blood pressures. I will say sh oumar seems fearful and uncomfortable on my examination. I will not initiate any blood pressure medicati ons at this time, but work instead to get her at greater ease, and see if her blood pressures trend d own. I do not think that we are seeing a manifestation of hypertensive encephalopathy at this time, but we will watch her blood pressures closely. 3. Prophylaxis with Lovenox. 4. Diet: Regular. DISPOSITION: I expect less than 2 midnights if the patient responds well to fluid resuscitation, is seen and cleared by therapies, and a plan for outpatient care is safely outlined. I have discussed t he case with the emergency room physician. Patient will be triaged to the medical-surgical floor for care. /[id number]/MODL
[2017-05-24] MEDS: ONDANSETRON 4 MG/2 ML VIAL IVP PRN ×2 (14:29→22:30)
[2017-05-24] MEDS: ACETAMINOPHEN 325 MG TAB PO PRN (23:21)
[2017-05-25] MEDS ORDERED: PROMETHAZINE HCL 25 MG/ML INJ IVP PRN (00:23)
[2017-05-25 04:44] VITALS: PULSE 65
[2017-05-25] MEDS ORDERED: NS 1,000 ML IV SCH (05:00)
[2017-05-25] MEDS: ONDANSETRON 4 MG/2 ML VIAL IVP PRN (05:02)
[2017-05-25] MEDS: ACETAMINOPHEN 325 MG TAB PO PRN (05:38)
[2017-05-25 07:37] VITALS: BP 141/93; RESP 15; TEMP 97.8; O2SAT 96
[2017-05-25] MEDS ORDERED: PANTOPRAZOLE SODIUM 40 MG TAB PO SCH (09:00)
[2017-05-25] MEDS ORDERED: ENOXAPARIN 40 MG/0.4 ML SYR SC SCH (09:00)
[2017-05-25] MEDS ORDERED: ESCITALOPRAM OXALATE 10 MG TAB PO SCH (09:00)
[2017-05-25] MEDS ORDERED: NON-FORMULARY NEW DRUG (Omeprazole [Omeprazole] 40 MG) PO SCH (09:00)
[2017-05-25] MEDS ORDERED: NAPROXEN SODIUM 220 MG TAB PO PRN (09:09)
--- NOTE | 2017-05-25 12:21 | ASMTCMCOM ---
CM Note CM Note Notes: Pt is ready for DC today. Spoke with to see if he had any needs in the home. He stated that his two daughters live nearby and he does not see any needs at this time. Date Signed: 05/25/2017 12:20 PM Electronically Signed By:Savannah Rodrigues LCSW
--- NOTE | 2017-05-25 14:48 | GDS ---
[f rep st] DISCHARGE SUMMARY DISCHARGE DIAGNOSES: Include: 1. Acute dehydration, thought secondary to poor p.o. intake. 2. Acute encephalopathy, multifactorial, secondary to dehydration and underlying cognitive deficit. 3. Baseline cognitive deficit. 4. History of nephrolithiasis. 5. History of small bowel obstruction. HISTORY OF PRESENT ILLNESS: A 72-year-old female, with suspected baseline cognitive deficits, who pr esented with acute encephalopathy. For details of patient's initial presentation, please see the His tory and Physical dated 05/24/2017. CONSULTATIVE SERVICES: None. PROCEDURES: Head CT on 05/24/2017, shows no acute findings. HOSPITAL COURSE: 1. Acute encephalopathy. Patient presents confused and unable to appropriately communicate. Initia l workup for infections has been completely benign, including basic laboratories, urinalysis, CT scan of the head. Patient has a history of responding well to fluid resuscitation. Patient was admitted in observation overnight, fluid resuscitated with normal saline. Morning after admission was mentat ing more at her baseline with fluent speech, conversant, and remembering all the members of her famil y. Oriented x3. I did touch base with patient's primary care provider who describes difficulties wi th this patient with nutritional intake baseline, as well as excessive exercising. I believe the pat ient is stable for disposition with normal vital signs, normal labs. PCP is ready to receive in the outpatient setting. 2. Baseline cognitive deficits. Patient does appear to have been developing memory issues in the ou tpatient setting. The PCP is suspicious of underlying evolving dementia. She will evaluate and init iate meds accordingly. MEDICATIONS AT DISPOSITION: Please reference the med rec printed on 05/25/2017. FOLLOWUP APPOINTMENTS: Include with Dr. Sadie Blanco in the next 7-10 days. I spent greater than 30 minutes in the planning and coordination of this discharge. /[id number]/MODL
== END 2017-05-25 12:29 | disposition home or self-care (01) ==
LOC: F1N 14:04
PROVIDERS: ADMIT Hospitalist; ATTEND Hospitalist
DX: E86.0 Dehydration (principal); G93.40 Encephalopathy, unspecified; E86.9 Volume depletion, unspecified; R03.0 Elevated blood-pressure reading, without diagnosis of hypertension; R41.3 Other amnesia; Z87.19 Personal history of other diseases of the digestive system; Z87.442 Personal history of urinary calculi
CPT/HCPCS: 70450; 74018; 92523; 99285; G0378; J1650; J2405

== ENCOUNTER 2017-06-09 21:06 | Emergency (ER) | payer OTHER ==
[2017-06-09] MEDS ORDERED: NS 1,000 ML IV ONE ×2 (21:59→22:10)
--- NOTE | 2017-06-09 21:59 | EDPHY ---
H & P Stated Complaint: "dehydration" Time Seen by Provider: 06/09/17 21:10 HPI/ROS: HPI CHIEF COMPLAINT: Dehydration, nausea vomiting HISTORY OF PRESENT ILLNESS: This is a very pleasant 72-year-old female, she has a history of dehydration, nausea vomiting, small-bowel obstruction, cognitive decline and dementia, she presents emergency room with her for nausea vomiting and dehydration. He states last time she had extensive vomiting got dehydrated and had acute encephalopathy. She started having some nausea vomiting earlier this evening and he became concerned that she was going to quickly get dehydrated so brought her to the emergency room. Upon arrival to the emergency room the patient has no complaints she is resting comfortably. She does complain of nausea. Denies abdominal pain chest pain or shortness of breath. The thinks that she gets some IV fluids that they may be able to go home. Past Medical History: Cognitive decline, dementia, dehydration, SBO Past Surgical History: Denies surgical history recently Social History: Lives locally, at bedside. Family History: Noncontributory ROS REVIEW OF SYSTEMS: A comprehensive 10 point review of systems is otherwise negative aside from elements mentioned in the history of present illness. Exam Constitutional appears elderly, frail, nontoxic triage nursing summary reviewed , vital signs reviewed, awake/alert. Eyes normal conjunctivae and sclera, EOMI, PERRLA. HENT normal inspection, atraumatic, dry mucus membranes, no epistaxis, neck supple/ no meningismus, no raccoon eyes. Respiratory clear to auscultation bilaterally, normal breath sounds, no respiratory distress, no wheezing. Cardiovascular rate normal, regular rhythm, no murmur, no edema, distal pulses normal. Gastrointestinal soft, non-tender, no rebound, no guarding, normal bowel sounds, no distension, no pulsatile mass. Genitourinary no CVA tenderness. Musculoskeletal no midline vertebral tenderness, full range of motion, no calf swelling, no tenderness of extremities, no meningismus, good pulses, neurovascularly intact. Skin pink, warm, & dry, no rash, skin atraumatic. Neurologic awake, alert and oriented x 3, AAOx3, moves all 4 extremities equally, motor intact, sensory intact, CN II-XII intact, normal cerebellar, normal vision, normal speech. Psychiatric normal mood/affect. Heme/Lymph/Immune no lymphadenopathy. Differential Diagnosis: Includes but is not limited to in a particular order acute dehydration, electrolyte disturbance, infection, SBO, dementia, cognitive decline, encephalopathy Medical Decision Making: Plan for this patient IV established with IV fluid bolus 2 L normal saline, IV Zofran for nausea, KUB to rule out abnormal bowel gas pattern. Check UA. Re-evaluate. Re-evaluation: EKG interpretation by me on record in [employer] system. Impression time of EKG 2234, sinus rhythm rate of [address] elevation no ST depression no significant T-wave abnormalities. 2324; re-evaluation at this time patient is resting comfortably. She feels much better after 2 L of fluid. She would like to go home. Her at bedside would like to take her home. Her blood work is reassuring. EKG is nonischemic she is a KUB that does not show any evidence of abnormal bowel gas pattern. She is feeling well. I have discussed return precautions with her she understands return emergency room if she feels worse in terms of nausea vomiting or gets dehydrated. She does have underlying cognitive decline/ dementia. Her feels comfortable taking her home. Her vital signs are stable. She drank well here in the emergency room. She denies any chest pain or shortness of breath. I Do recommend she follows up with primary care doctor. Return if worse. Source: Patient - Personal History Current Tetanus/Diphtheria Vaccine: Yes Current Tetanus Diphtheria and Acellular Pertussis (TDAP): Yes Tetanus Vaccine Date: <10YRS - Medical/Surgical History Hx Asthma: No Hx Chronic Respiratory Disease: No Hx Diabetes: No Hx Cardiac Disease: No Hx Renal Disease: No Hx Cirrhosis: No Hx Alcoholism: No Hx HIV/AIDS: No Hx Splenectomy or Spleen Trauma: No Other PMH: kidney stones, small bowel obs., dehydration with N/V and altered mental status - Social History Smoking Status: Never smoked Constitutional: Initial Vital Signs Temperature (C) 37 C 06/09/17 21:08 Heart Rate 62 06/09/17 21:08 Respiratory Rate 16 06/09/17 21:08 Blood Pressure 162/74 H 06/09/17 21:08 O2 Sat (%) 97 06/09/17 21:08 O2 Delivery Mode Room Air Allergies/Adverse Reactions: No Known Allergies Allergy (Verified 05/24/17 09:10) Home Medications: Medication Instructions Recorded Escitalopram Oxalate [Lexapro 10 10 mg PO DAILY 05/24/17 MG] Omeprazole 40 mg PO DAILY 05/24/17 Medical Decision Making - Data Points Laboratory Results: Laboratory Results 06/09/17 22:10 06/09/17 22:10 06/09/17 06/09/17 06/09/17 22:10 22:10 22:10 WBC 5.02 10^3/uL 10^3/uL (3.80-9.50) RBC 3.88 10^6/uL L 10^6/uL (4.18-5.33) Hgb 11.2 g/dL L g/dL (12.6-16.3) Hct 34.8 % L % (38.0-47.0) MCV 89.7 fL fL (81.5-99.8) MCH 28.9 pg pg (27.9-34.1) MCHC 32.2 g/dL L g/dL (32.4-36.7) RDW 14.7 % % (11.5-15.2) Plt Count 373 10^3/uL 10^3/uL (150-400) MPV 9.1 fL fL (8.7-11.7) Neut % (Auto) 61.1 % % (39.3-74.2) Lymph % (Auto) 21.3 % % (15.0-45.0) [place] % (Auto) 11.4 % % (4.5-13.0) Eos % (Auto) 4.8 % % (0.6-7.6) Baso % (Auto) 1.0 % % (0.3-1.7) Nucleat RBC Rel Count 0.0 % % (0.0-0.2) Absolute Neuts (auto) 3.07 10^3/uL 10^3/uL (1.70-6.50) Absolute Lymphs (auto) 1.07 10^3/uL 10^3/uL (1.00-3.00) Absolute Monos (auto) 0.57 10^3/uL 10^3/uL (0.30-0.80) Absolute Eos (auto) 0.24 10^3/uL 10^3/uL (0.03-0.40) Absolute Basos (auto) 0.05 10^3/uL 10^3/uL (0.02-0.10) Absolute Nucleated RBC 0.00 10^3/uL 10^3/uL (0-0.01) Immature Gran % 0.4 % % (0.0-1.1) Immature Gran # 0.02 10^3/uL 10^3/uL (0.00-0.10) PT 12.8 SEC SEC (12.0-15.0) INR 0.94 (0.83-1.16) APTT 27.8 SEC SEC (23.0-38.0) Sodium 139 mEq/L mEq/L (135-145) Potassium 4.2 mEq/L mEq/L (3.5-5.2) Chloride 104 mEq/L mEq/L (97-110) Carbon Dioxide 27 mEq/l mEq/l (22-31) Anion Gap 8 mEq/L mEq/L (8-16) BUN 16 mg/dL mg/dL (7-23) Creatinine 0.7 mg/dL mg/dL (0.6-1.0) Estimated GFR > 60 Glucose 94 mg/dL mg/dL (70-100) Calcium 8.7 mg/dL mg/dL (8.5-10.4) Total Bilirubin 0.6 mg/dL mg/dL (0.1-1.4) Conjugated Bilirubin 0.5 mg/dL mg/dL (0.0-0.5) Unconjugated Bilirubin 0.1 mg/dL mg/dL (0.0-1.1) AST 18 IU/L IU/L (14-46) ALT 32 IU/L IU/L (9-52) Alkaline Phosphatase 64 IU/L IU/L (38-126) Troponin I Pending Total Protein 6.0 g/dL L g/dL (6.3-8.2) Albumin 3.4 g/dL L g/dL (3.5-5.0) Medications Given: Discontinued Medications Sodium Chloride (Ns) 1,000 mls @ 0 mls/hr IV EDNOW ONE; Wide Open PRN Reason: Protocol Stop: 06/09/17 22:00 Last Admin: 06/09/17 22:16 Dose: 1,000 mls Sodium Chloride (Ns) 1,000 mls @ 0 mls/hr IV ONCE ONE PRN Reason: Wide Open Stop: 06/09/17 22:11 Last Admin: 03/16/18 22:16 Dose: 1,000 mls Ondansetron HCl (Zofran) 4 mg IVP EDNOW ONE Stop: 06/09/17 22:16 Last Admin: 06/09/17 22:17 Dose: 4 mg Departure - Departure Disposition: Home, Routine, Self-Care Clinical Impression: Dehydration Condition: Good Instructions: Dehydration (ED) Additional Instructions: 1. Stay well-hydrated drink lots of fluids. 2. Return to the emergency room if there is worsening symptoms questions or concerns. Referrals: Sadie Blanco MD [Primary Care Provider] - As per Instructions
[2017-06-09] MEDS ORDERED: ONDANSETRON 4 MG/2 ML VIAL ONE (22:03)
[2017-06-09] MEDS ORDERED: ONDANSETRON 4 MG/2 ML VIAL IVP ONE (22:15)
--- NOTE | 2017-06-09 22:37 | CPEKG ---
Heart Rate: 58 RR Interval: 1034 P-R Interval: 164 QRSD Interval: 98 QT Interval: 460 QTC Interval: 452 P [place]: 68 QRS [place]: -28 T Wave [place]: 5 EKG Severity - ABNORMAL ECG - EKG Impression: SINUS RHYTHM EKG Impression: PROBABLE LEFT ATRIAL ABNORMALITY EKG Impression: BORDERLINE LEFT AXIS DEVIATION EKG Impression: PROBABLE ANTEROSEPTAL INFARCT, AGE INDETERM Electronically Signed By: Ricardo Moreno 09-Jun-2017 23:13:41
[2017-06-09 22:54] LABS: PLATELET COUNT 373 10^3/uL (150-400)
[2017-06-09 23:13] LABS: INR 0.94 (0.83-1.16); PROTIME(PATIENT) 12.8 SEC (12.0-15.0)
[2017-06-09] MEDS ORDERED: ACETAMINOPHEN 500 MG TAB PO ONE (23:23)
[2017-06-09 23:36] VITALS: TEMP 98.2
[2017-06-09 23:39] VITALS: BP 151/89; PULSE 77; RESP 18; O2SAT 96
== END 2017-06-09 23:47 | disposition home or self-care (01) ==
DX: E86.0 Dehydration (principal); E86.9 Volume depletion, unspecified
CPT/HCPCS: 74018; 93005; 96361; 96374; 99285; J2405

== ENCOUNTER 2017-06-27 16:38 | Observation (INO) | payer OTHER ==
--- NOTE | 2017-06-27 17:19 | EDPHY ---
H & P Smoking Status: Never smoked Time Seen by Provider: 06/27/17 17:00 HPI/ROS: CHIEF COMPLAINT: Right leg laceration HISTORY OF PRESENT ILLNESS: 72-year-old female presents to the emergency department by private vehicle with laceration to her right leg. The patient was walking her dog just prior to arrival and the dog leash got caught and wrapped around her leg and the dog pulled and she sustained a laceration to her right lower leg. She fell onto her side. She did not hit her head or lose consciousness. Denies neck or back pain. Denies chest pain or difficulty breathing. The incident happened around 4:00 p.m.. She was able to ambulate and walk back home. She believes her tetanus shot is current. REVIEW OF SYSTEMS: Constitutional: No fever, no chills. Eyes: No double or blurry vision. ENT: No sore throat. Respiratory: No cough, no shortness of breath. Cardiac: No chest pain. Gastrointestinal: No abdominal pain, vomiting or diarrhea. Genitourinary: No dysuria. Musculoskeletal: No neck or back pain. Skin: Leg laceration as above. No rashes. Neurological: No headache. (Araceli De Los Santos) Past Medical/Surgical History: Kidney stones, small-bowel obstruction, history of dehydration with altered mental status (Araceli De Los Santos) Social History: (Araceli De Los Santos) Physical Exam: General Appearance: Alert, no distress. No visible signs of trauma to her head. at bedside. Eyes: Pupils equal and round. Extraocular motions are all intact. ENT: Mouth: Mucous membranes moist. Respiratory: No wheezing, rhonchi, or rales, lungs are clear to auscultation. Cardiovascular: Regular rate and rhythm. Gastrointestinal: Abdomen is soft and nontender, no masses, no rebound or guarding, bowel sounds normal. Neurological: Alert and oriented x 3, cranial nerves II through XII grossly intact Skin: Very large irregular flap laceration noted to the distal aspect of the right lower leg. It does not extend into her ankle or her knee. There is no active bleeding noted. There is debris noted within the wound. Warm and dry, no rashes. Musculoskeletal: Nontender to palpate along the cervical, thoracic or lumbar spine. Neck is supple. Extremities: Full range of motion and no peripheral edema. Specifically full range of motion of her right lower extremity. Psychiatric: Patient is oriented X 3, there is no agitation. (Araceli De Los Santos) Constitutional: Initial Vital Signs Temperature (C) 36.4 C 06/27/17 16:42 Heart Rate 59 L 06/27/17 16:42 Respiratory Rate 16 06/27/17 16:42 Blood Pressure 136/87 H 06/27/17 16:42 O2 Sat (%) 92 06/27/17 16:42 O2 Delivery Mode Room Air Allergies/Adverse Reactions: No Known Allergies Allergy (Verified 06/27/17 17:57) Home Medications: Medication Instructions Recorded Escitalopram Oxalate [Lexapro] 20 mg PO DAILY 06/27/17 MDM/Departure - MDM Medications Given: Discontinued Medications Cefazolin Sodium/Dextrose (Ancef 1 Gm (Premix)) 50 mls @ 200 mls/hr IV EDNOW ONE PRN Reason: Protocol Stop: 06/27/17 17:31 Last Admin: 06/27/17 17:20 Dose: 50 mls ED Course/Re-evaluation: PHYSICIAN DOCUMENTATION: The patient was evaluated and managed by the Physician Concrete Pile Driver Operator and myself. I have reviewed the chart and agree with the findings and plan of care as documented. In addition, I examined the patient myself at 1720. History confirmed as laceration from dog leash. Physical findings as follows: Large irregular distally based flap laceration with grass in the laceration. Discussed with Efren for irrigation and closure in the OR> I am the secondary supervising physician. (Ezio Smith) Patient was also evaluated by Dr. Ezio Smith. He spoke with the on-call surgeon , Dr. Debora Schwartz, who will take this patient to the operating room for washout. The patient was kept NPO. She was given 1 g of IV cefazolin in the emergency department. Saline soaked gauze was placed on the wound. (Araceli De Los Santos) - Depart Disposition: To OP Cath/Surgery Clinical Impression: Laceration of right lower leg Qualifiers: Encounter type: initial encounter Qualified Code(s): S81.811A - Laceration without foreign body, right lower leg, initial encounter Condition: Good
[2017-06-27] MEDS ORDERED: ONDANSETRON 4 MG/2 ML VIAL IVP PRN ×2 (18:14→20:00)
[2017-06-27 18:21] LABS: PLATELET COUNT 342 10^3/uL (150-400)
[2017-06-27] MEDS ORDERED: MIDAZOLAM 2 MG/2 ML VIAL ONE (19:24)
[2017-06-27] MEDS ORDERED: ONDANSETRON 4 MG/2 ML VIAL ONE (19:29)
[2017-06-27] MEDS ORDERED: PROPOFOL 200 MG/20 ML VIAL ONE (19:29)
[2017-06-27] MEDS ORDERED: ROCURONIUM 50 MG/5 ML VIAL ONE (19:29)
[2017-06-27] MEDS ORDERED: LIDOCAINE 2% 100 MG/5 ML SYR ONE (19:29)
[2017-06-27] MEDS ORDERED: fentaNYL 100 MCG/2 ML INJ ONE (19:29)
[2017-06-27] MEDS ORDERED: DEXAMETHASONE 4 MG/ML VIAL ONE (19:29)
[2017-06-27] MEDS ORDERED: BUPIVACAINE 0.5% 30 ML SDV ONE (19:48)
[2017-06-27] MEDS ORDERED: MIDAZOLAM 2 MG/2 ML VIAL IVP ONE (19:59)
--- NOTE | 2017-06-27 19:59 | GHP ---
[f rep st] HISTORY AND PHYSICAL DATE OF ADMISSION: 06/27/2017 CHIEF COMPLAINT: Right leg laceration. HISTORY OF PRESENT ILLNESS: The patient is a 72-year-old woman who presented to the emergency depart [facility] due to a laceration on her right leg. She was walking her pit bull and the dog leash got caught and wrapped around her leg. The dog pulled and she sustained a large laceration. She did not lose consciousness. Her tetanus shot is current. PAST MEDICAL HISTORY: Dehydration, kidney stones, small-bowel obstruction. SOCIAL HISTORY: She is . She has never smoked. REVIEW OF SYSTEMS: 10-point review of systems is negative. PHYSICAL EXAMINATION: GENERAL: Pleasant, well-nourished, well-groomed woman. at bedside. HEENT: Normocephalic. No gross hearing deficits. Mucous membranes moist. Pupils equal and round. No scleral icterus. LUNGS: Clear to auscultation bilaterally. No increased work of breathing. CA RDIAC: Regular rate. No peripheral edema. SKIN: She has a large irregular flap laceration on her right lower extremity. It is full-thickness. There is surprisingly a vein that is not disrupted thr oughout the middle of this. NEURO: Intact. PSYCH: Mood and affect normal. IMPRESSION: A 72-year-old woman with a large laceration to her right lower extremity. PLAN: I believe it is semi emergent to go to the operating room to wash this out and attempt primary closure. I discussed that she may have an issue where the flap becomes devitalized and we may need to excise it and later perform skin grafting. I do think we are within the timeframe to wash this ou t and attempt primary closure. /[id number]/MODL
--- NOTE | 2017-06-27 19:59 | PDANEPAE ---
ANE History of Present Illness R leg I and D ANE Past Medical History - Pulmonary History Hx Oxygen in Use at Home: No Hx Sleep Apnea: No - Endocrine History Hx Diabetes: No - Chronic Pain History Chronic Pain: No ANE Review of Systems Review of Systems: fainting - Exercise capacity Exercise capacity: >=4 METS ANE Patient History - Allergies Allergies/Adverse Reactions: No Known Allergies Allergy (Verified 06/27/17 17:57) - Home Medications Home medications: home medication list seen and reviewed Home Medications: Escitalopram Oxalate [Lexapro] 20 mg PO DAILY 06/27/17 [Last Taken 06/27/17] - NPO status NPO Since - Liquids (Date): 06/27/17 NPO Since - Liquids (Time): 15:00 NPO Since - Solids (Date): 06/27/17 NPO Since - Solids (Time): 15:00 - Anes Hx Anes Hx: no prior problems - Smoking Hx Smoking Status: Never smoked - Family Anes Hx Family Anes Hx: none ANE Labs/Vital Signs - Labs Result Diagrams: 06/27/17 16:55 06/27/17 16:55 - Vital Signs Blood Pressure: 127/79 Heart Rate: 58 Respiratory Rate: 16 O2 Sat (%): 91 Height: 167.64 cm Weight: 52.163 kg ANE Physical Exam - Airway Neck exam: FROM Mallampati Score: Class 1 Mouth exam: normal dental/mouth exam - Pulmonary Pulmonary: no respiratory distress - Cardiovascular Cardiovascular: regular rate and rhythym - ASA Status ASA Status: I, E ANE Anesthesia Plan Anesthesia Plan: general endotracheal anesthesia (RSI) Urgent/Emergent Case: Sarahy rodriguez completed preop but documented later for safe timely pt care
[2017-06-27] MEDS ORDERED: HYDROCODONE/APAP 5/325 TAB PO PRN ×2 (20:00→20:27)
[2017-06-27] MEDS ORDERED: fentaNYL 100 MCG/2 ML INJ IVP PRN (20:00)
[2017-06-27] MEDS ORDERED: LABETALOL HCL 5 MG/ML 20 ML MDV IVP PRN (20:00)
[2017-06-27] MEDS ORDERED: DEXAMETHASONE 4 MG/ML VIAL IVP PRN (20:00)
[2017-06-27] MEDS ORDERED: MEPERIDINE 25 MG/ML SYR IVP PRN (20:00)
[2017-06-27] MEDS ORDERED: oxyCODONE IR 5 MG TAB PO PRN (20:00)
[2017-06-27] MEDS ORDERED: ACETAMINOPHEN 500 MG TAB PO PRN (20:00)
[2017-06-27] MEDS ORDERED: NALOXONE HCL 0.4 MG/ML INJ IVP PRN (20:00)
[2017-06-27] MEDS ORDERED: HYDROmorphONE/DILAUDID 2 MG/ML INJ IVP PRN (20:00)
--- NOTE | 2017-06-27 20:05 | POSTANESTH ---
Post Anesthetic Evaluation Cardiovascular Status: Normal, Stable, Similar to Pre-Op Cond Respiratory Status: Normal, Stable, Similar to Pre-op Cond. Level of Consciousness/Mental Status: Can Participate in Eval, Mildly Sleepy, Arousable Pain Control: Adequate, Prn Tx Ordered Nausea/Vomiting Control: Adequate, Prn Tx Ordered Complications Possibly Related to Anesthesia: None Noted
[2017-06-27] MEDS ORDERED: BACITRACIN ZINC 14.2 GM OINTTUBE TP ONE (20:11)
--- NOTE | 2017-06-27 20:26 | POSTOPPROG ---
Post Op Note Date of Operation: 06/27/17 Surgeon: Debora Schwartz Anesthesiologist: richard Anesthesia: GET(General Endotracheal) Pre-op Diagnosis: leg laceration Post-op Diagnosis: same Indication: 72 yo with traumatic wound rle Procedure: debridement and complex closure R leg lac 16x8 Findings: down to fascia Inf/Abcess present in the surg proc area at time of surgery?: Yes Depth: Deep Incisional (Fascial) EBL: Minimal Specimen(s): none
[2017-06-27] MEDS ORDERED: ACETAMINOPHEN 325 MG TAB PO PRN (20:27)
[2017-06-27] MEDS: PIPERACILLIN/TAZO 3.375 GM/DEX 50 ML IV SCH (22:41)
[2017-06-28] MEDS: PIPERACILLIN/TAZO 3.375 GM/DEX 50 ML IV SCH ×4 (04:41→21:02)
[2017-06-28] MEDS ORDERED: PROMETHAZINE HCL 25 MG/ML INJ IVP PRN (08:36)
--- NOTE | 2017-06-28 08:36 | SOAPPROG ---
SOAP Progress Note Assessment/Plan: Assessment/Plan: 72yo F POD#1 s/p debridement skin soft tissue RLE traumatic wound with complex closure (16x8cm) from dog leash Pain controlled Dressing intact No evidence of infection. Continue antibiotics Dispo: IN home with wound care followup. Call with worsening symptoms, questions or concerns. Patient seen by Dr. Schwartz. S: O: WDWN woman in NAD No increased WOB No peripheral edema 2+ peripheral pulses RLE dressing CDI. Sutures intact. No erythema. No ecchymosis. Dressing replaced Objective: Vital Signs Temp Pulse Resp BP Pulse Ox 36.8 C 59 L 16 149/84 H 92 06/28/17 07:56 06/28/17 07:56 06/28/17 07:56 06/28/17 07:56 06/28/17 07:56 06/27/17 06/28/17 06/29/17 05:59 05:59 05:59 Intake Total 610 Output Total 10 Balance 600 ICD10 Worksheet Patient Problems: Problems Problem Status Onset Laceration of right lower leg Acute Altered mental status Acute Failure to thrive in adult Acute Renal colic on left side Acute Small bowel obstruction Acute
[2017-06-28] MEDS ORDERED: ACETAMINOPHEN/ASA/CAFFEINE 1 EACH TAB PO PRN (08:37)
[2017-06-28] MEDS ORDERED: traMADol 50 MG TAB PO PRN (08:38)
--- NOTE | 2017-06-28 08:40 | SOAPPROG ---
SOAP Progress Note Assessment/Plan: Assessment: POD # 1 s/p debridement and complex wound closure RLE. Nausea and headache this am Added phenergan and excedrin Likely transition to Augmentin on discharge If improved, can dc later this afternoon Wean O2 to off S: Nausea O: Incision cdi, Dressing changed. No erythema. Suture line intact Plan: 06/28/17 08:39 Objective: Vital Signs Temp Pulse Resp BP Pulse Ox 36.8 C 59 L 16 149/84 H 92 06/28/17 07:56 06/28/17 07:56 06/28/17 07:56 06/28/17 07:56 06/28/17 07:56 06/27/17 06/28/17 06/29/17 05:59 05:59 05:59 Intake Total 610 Output Total 10 Balance 600 ICD10 Worksheet Patient Problems: Problems Problem Status Onset Laceration of right lower leg Acute Altered mental status Acute Failure to thrive in adult Acute Renal colic on left side Acute Small bowel obstruction Acute
--- NOTE | 2017-06-28 16:45 | ASMTCMCOM ---
CM Note CM Note Notes: Spoke w/pt, does not think she will have any needs at home, has been walking. Anticipate will dc home w/support of when medically stable. CM available for any changes. DC Plan: Independent Date Signed: 06/28/2017 04:45 PM Electronically Signed By:Patrizia Kruse RN
[2017-06-28] MEDS ORDERED: NS 1,000 ML IV SCH (17:00)
[2017-06-28] MEDS ORDERED: MELATONIN 3 MG TAB PO SCH (21:00)
[2017-06-29] MEDS: PIPERACILLIN/TAZO 3.375 GM/DEX 50 ML IV SCH ×2 (04:59→09:24)
[2017-06-29 07:25] VITALS: BP 149/93; PULSE 58; RESP 20; TEMP 97.8; O2SAT 92
--- NOTE | 2017-06-29 08:42 | SOAPPROG ---
SOAP Progress Note Assessment/Plan: Assessment: POD # 2 s/p debridement and complex wound closure RLE. Much improved and eager to go home S: Feeling much improved O: Incision cdi, Dressing changed. No erythema. Suture line intact Plan: 06/28/17 08:39 06/29/17 08:37 Objective: Vital Signs Temp Pulse Resp BP Pulse Ox 36.6 C 58 L 20 149/93 H 92 06/29/17 07:24 06/29/17 07:24 06/29/17 07:24 06/29/17 07:24 06/29/17 07:24 06/28/17 06/29/17 06/30/17 05:59 05:59 05:59 Intake Total 610 550 Output Total 10 700 Balance 600 -150 ICD10 Worksheet Patient Problems: Problems Problem Status Onset Laceration of right lower leg Acute Altered mental status Acute Failure to thrive in adult Acute Renal colic on left side Acute Small bowel obstruction Acute
== END 2017-06-29 10:00 | disposition home or self-care (01) ==
LOC: F3E 21:30
PROVIDERS: ADMIT Surgery; ATTEND Surgery
PROC: 0JQN0ZZ Repair Right Lower Leg Subcutaneous Tissue and Fascia, Open Approach (ICD-10-PCS; principal; 2017-06-27 19:15)
DX: S81.821A Laceration with foreign body, right lower leg, initial encounter (principal); W18.39XA Other fall on same level, initial encounter; Y93.K1 Activity, walking an animal; Y99.8 Other external cause status
CPT/HCPCS: 13121; 13122; 96374; 99285; G0378; J0690; J1100; J2001; J2250; J2270; J2405; J2543; J2550; J2704; J3010

== ENCOUNTER 2017-07-08 21:08 | Emergency (ER) | payer OTHER ==
[2017-07-08] MEDS ORDERED: NS 1,000 ML IV ONE (21:44)
[2017-07-08] MEDS ORDERED: ONDANSETRON 4 MG/2 ML VIAL ONE (21:52)
[2017-07-08] MEDS ORDERED: ONDANSETRON 4 MG/2 ML VIAL IVP ONE (21:54)
[2017-07-08 21:57] LABS: PLATELET COUNT 378 10^3/uL (150-400)
--- NOTE | 2017-07-08 21:59 | EDPHY ---
H & P Time Seen by Provider: 07/08/17 21:34 HPI/ROS: HPI Dehydration, vomiting. 72-year-old female by private vehicle with her brother who is an emergency physician. This patient has a history of nausea, vomiting, dehydration, small- bowel obstruction, cognitive decline, dementia. She has been seen in our emergency department multiple times in the past and has had extensive workups for this same complaint. She is here with her brother now with complaint of vomiting x2 today, not tolerating oral fluids and her brother states that she seems more confused but states that this is typical of her previous episodes. Her workups have been essentially negative. Her encephalopathy is thought to be somehow related to her becoming very dehydrated. She reports that this afternoon she started feeling fatigued then became nauseous and then had a couple of episodes of nonbilious, nonbloody vomiting. She describes having a mild headache at this time. She denies any significant abdominal pain. Her brother who is with her states that she is in a during is runner and has had issues in the past with eating and anorexia. ROS: Constitutional: No fever, no chills. As above. Eyes: No discharge. No changes in vision. ENT: No sore throat. No nasal congestion or rhinorrhea. Respiratory: No cough. No shortness of breath. Cardiac: No chest pain, no palpitations. Gastrointestinal: No abdominal pain, as above, no diarrhea. Genitourinary: No hematuria. No dysuria or increased frequency with urination. Musculoskeletal: No back pain. No neck pain. No myalgias or arthralgias. Skin: No rashes. Neurological: She complains of a mild gradual onset headache. Similar to headaches in the past. No focal weakness or altered sensation. Past medical history: Cognitive could decline, dementia, dehydration, small- bowel obstruction, anorexia. Recent surgery on right calf after a dog lesion accident. She has follow-up with Dr. Schwartz on Monday at wound clinic to have this recheck. Social history: Nonsmoker. Avid runner. Here with her brother. Lives in [place]. Physical Exam: General Appearance: Alert, pleasant 72-year-old female, thin in stature, no distress. This patient is responding to questions appropriately and in full sentences. This patient appears well-hydrated and well-nourished. Eyes: Pupils equal and round no pallor or injection. No lid edema, erythema or injection. No nystagmus. No photophobia. Respiratory: There are no retractions, lungs are clear to auscultation with good air movement bilaterally. Cardiovascular: Regular rate and rhythm. No murmur. Gastrointestinal: Abdomen is soft and nontender, no masses, bowel sounds normal. No focal tenderness at McBurney's point. No Jeter sign. Neurological: Motor sensory function is grossly intact. Cranial nerves are normal. Gait is normal. Skin: Warm and dry, no rashes. Dressing was taken down over right calf wound. Well sutured, incision site is clean dry and intact without evidence of infection. Musculoskeletal: Neck is supple and nontender. Extremities are symmetrical. All joints range without pain or impingement. Psychiatric: No agitation. No depression. Database: EKG: Imaging: Upright abdominal x-ray series: Moderate constipation. No free air. No obstruction. Interpreted by me. Procedures: Emergency department course: Vital signs reviewed. She is moderately hypertensive. Vital signs otherwise normal. IV was placed. She was placed on a monitor. She was started on IV normal saline with 1 L to be given over the next hour. She was initially given 4 mg of IV Zofran for nausea. She was given 15 mg of IV Toradol for headache. No contraindications to NSAIDs. 10:50 p.m., patient re-evaluated. Resting comfortably at this time. No abdominal pain. No complaints currently. I discussed results of her emergency department workup as well as previous emergency department records and test results with her son the retired emergency physician. There is no focality on her exam. At this time I do not feel there would be much benefit in admission. His son is in agreement. I discussed my concern regarding her anemia. He will make sure this is followed and acted on as necessary. He is asking for 1 more L of IV fluids. She will be given D5 normal saline and then discharged with a prescription for Zofran. Both the patient and her son are in agreement with this plan. Her remaining emergency department course under my care has been uneventful. She was discharged home in good condition with her son. Of note, she does have an appointment to see a psychologist in the near future regarding her eating disorder. Differential Diagnosis: The differential diagnosis on this patient includes but is not limited to dehydration, transient altered mental status, gastritis, anorexia. Bowel obstruction, CVA, meningitis, encephalitis unlikely. This represents a partial list of diagnoses considered. These considerations are based on history, physical exam, past history, reassessment and diagnostic testing. Smoking Status: Never smoked Constitutional: Initial Vital Signs Temperature (C) 36.6 C 07/08/17 21:17 Heart Rate 62 07/08/17 21:17 Respiratory Rate 20 07/08/17 21:17 Blood Pressure 164/82 H 07/08/17 21:17 O2 Sat (%) 97 07/08/17 21:17 O2 Delivery Mode Room Air Allergies/Adverse Reactions: No Known Allergies Allergy (Verified 07/08/17 21:16) Home Medications: Medication Instructions Recorded Escitalopram Oxalate [Lexapro] 20 mg PO DAILY 06/27/17 Acetaminophen [Tylenol 325mg (*)] 650 mg PO Q4HRS PRN tab 06/28/17 Amoxicillin/Clavulanate Pot 875 mg PO BID #14 tab 06/28/17 [Augmentin 875 MG TAB (*)] Promethazine HCl [Phenergan 12.5mg 6.25 - 12.5 mg PO Q6H PRN #20 06/28/17 tab] tablet Ondansetron Odt [Zofran Odt 4 mg 4 mg PO Q4PRN PRN #20 tab 07/08/17 (*)] Medical Decision Making - Diagnostics Imaging Results: Imaging Impressions Abdomen X-Ray 07/08/17 21:54 Impression: Moderate constipation/obstipation, with no evidence of a small bowel obstruction. - Data Points Laboratory Results: Laboratory Results 07/08/17 21:41 07/08/17 21:41 07/08/17 07/08/17 07/08/17 21:50 21:41 21:41 WBC 5.17 10^3/uL 10^3/uL (3.80-9.50) RBC 3.72 10^6/uL L 10^6/uL (4.18-5.33) Hgb 10.3 g/dL L g/dL (12.6-16.3) Hct 33.0 % L % (38.0-47.0) MCV 88.7 fL fL (81.5-99.8) MCH 27.7 pg L pg (27.9-34.1) MCHC 31.2 g/dL L g/dL (32.4-36.7) RDW 14.8 % % (11.5-15.2) Plt Count 378 10^3/uL 10^3/uL (150-400) MPV 8.8 fL fL (8.7-11.7) Neut % (Auto) 63.4 % % (39.3-74.2) Lymph % (Auto) 20.5 % % (15.0-45.0) [place] % (Auto) 11.0 % % (4.5-13.0) Eos % (Auto) 3.5 % % (0.6-7.6) Baso % (Auto) 1.2 % % (0.3-1.7) Nucleat RBC Rel Count 0.0 % % (0.0-0.2) Absolute Neuts (auto) 3.28 10^3/uL 10^3/uL (1.70-6.50) Absolute Lymphs (auto) 1.06 10^3/uL 10^3/uL (1.00-3.00) Absolute Monos (auto) 0.57 10^3/uL 10^3/uL (0.30-0.80) Absolute Eos (auto) 0.18 10^3/uL 10^3/uL (0.03-0.40) Absolute Basos (auto) 0.06 10^3/uL 10^3/uL (0.02-0.10) Absolute Nucleated RBC 0.00 10^3/uL 10^3/uL (0-0.01) Immature Gran % 0.4 % % (0.0-1.1) Immature Gran # 0.02 10^3/uL 10^3/uL (0.00-0.10) Sodium 140 mEq/L mEq/L (135-145) Potassium 3.7 mEq/L mEq/L (3.5-5.2) Chloride 107 mEq/L mEq/L (97-110) Carbon Dioxide 26 mEq/l mEq/l (22-31) Anion Gap 7 mEq/L L mEq/L (8-16) BUN 16 mg/dL mg/dL (7-23) Creatinine 0.6 mg/dL mg/dL (0.6-1.0) Estimated GFR > 60 Glucose 95 mg/dL mg/dL (70-100) Calcium 9.0 mg/dL mg/dL (8.5-10.4) Total Bilirubin Conjugated Bilirubin Unconjugated Bilirubin AST ALT Alkaline Phosphatase Total Protein Albumin TSH Urine Color YELLOW Urine Appearance CLEAR Urine pH 7.0 (5.0-7.5) Ur Specific [place] 1.013 (1.002-1.030) Urine Protein NEGATIVE (NEGATIVE) Urine Ketones NEGATIVE (NEGATIVE) Urine Blood NEGATIVE (NEGATIVE) Urine Nitrate NEGATIVE (NEGATIVE) Urine Bilirubin NEGATIVE (NEGATIVE) Urine Urobilinogen NEGATIVE EU EU (0.2-1.0) Ur Leukocyte Esterase NEGATIVE (NEGATIVE) Urine RBC 1-3 /hpf /hpf (0-3) Urine WBC 1-3 /hpf /hpf (0-3) Ur Epithelial Cells TRACE /lpf /lpf (NONE-1+) Urine Mucus TRACE /lpf /lpf (NONE-1+) Urine Glucose NEGATIVE (NEGATIVE) 07/08/17 21:30 WBC RBC Hgb Hct MCV MCH MCHC RDW Plt Count MPV Neut % (Auto) Lymph % (Auto) [place] % (Auto) Eos % (Auto) Baso % (Auto) Nucleat RBC Rel Count Absolute Neuts (auto) Absolute Lymphs (auto) Absolute Monos (auto) Absolute Eos (auto) Absolute Basos (auto) Absolute Nucleated RBC Immature Gran % Immature Gran # Sodium Potassium Chloride Carbon Dioxide Anion Gap BUN Creatinine Estimated GFR Glucose Calcium Total Bilirubin 0.4 mg/dL mg/dL (0.1-1.4) Conjugated Bilirubin 0.2 mg/dL mg/dL (0.0-0.5) Unconjugated Bilirubin 0.2 mg/dL mg/dL (0.0-1.1) AST 22 IU/L IU/L (14-46) ALT 27 IU/L IU/L (9-52) Alkaline Phosphatase 58 IU/L IU/L (38-126) Total Protein 6.3 g/dL g/dL (6.3-8.2) Albumin 3.5 g/dL g/dL (3.5-5.0) TSH Pending Urine Color Urine Appearance Urine pH Ur Specific [place] Urine Protein Urine Ketones Urine Blood Urine Nitrate Urine Bilirubin Urine Urobilinogen Ur Leukocyte Esterase Urine RBC Urine WBC Ur Epithelial Cells Urine Mucus Urine Glucose Medications Given: Discontinued Medications Sodium Chloride (Ns) 1,000 mls @ 0 mls/hr IV ONCE ONE; Wide Open PRN Reason: Protocol Stop: 07/08/17 21:45 Last Admin: 07/08/17 21:55 Dose: 1,000 mls Ketorolac Tromethamine (Toradol) 15 mg IVP EDNOW ONE Stop: 07/08/17 22:03 Last Admin: 07/08/17 22:05 Dose: 15 mg Ondansetron HCl (Zofran) 4 mg IVP EDNOW ONE Stop: 07/08/17 21:55 Last Admin: 07/08/17 21:56 Dose: 4 mg Departure - Departure Disposition: Home, Routine, Self-Care Clinical Impression: Transient alteration of awareness, Dehydration, Vomiting Condition: Good Instructions: Dehydration (ED), Acute Nausea and Vomiting (ED) Additional Instructions: Read and follow provided instructions. Follow-up with your primary care physician on Monday or Monday of this week for re-evaluation. Have your primary care physician recheck your blood cell counts for anemia this week as discussed. Keep well hydrated and eat 3 regularly spaced meals per day Take medication as prescribed for nausea. Return to the emergency department for worsening abdominal pain, vomiting and inability to keep fluids down despite medications or other serious concerns. Referrals: Sadie Blanco MD [Primary Care Provider] - As per Instructions Prescriptions: Ondansetron Odt [Zofran Odt 4 mg (*)] 4 mg PO Q4PRN PRN #20 tab PRN Reason: For Nausea & Vomiting
[2017-07-08] MEDS ORDERED: KETOROLAC 15 MG/1 ML SDV ONE (22:00)
[2017-07-08] MEDS ORDERED: KETOROLAC 15 MG/1 ML SDV IVP ONE (22:02)
[2017-07-08] MEDS ORDERED: D5W NS 1,000 ML IV ONE (22:45)
[2017-07-08] MEDS ORDERED: ONDANSETRON 4MG PREPACK#2 BTL TAKEHOME ONE (22:55)
[2017-07-08 23:44] VITALS: BP 176/52
== END 2017-07-08 23:43 | disposition home or self-care (01) ==
DX: R40.4 Transient alteration of awareness (principal); R11.10 Vomiting, unspecified; E86.0 Dehydration
CPT/HCPCS: 74018; 96361; 96374; 96375; 99284; J1885; J2405

== ENCOUNTER 2017-08-05 16:12 | Emergency (ER) | payer OTHER ==
[2017-08-05] MEDS ORDERED: ONDANSETRON 4 MG/2 ML VIAL IVP ONE (16:38)
[2017-08-05] MEDS ORDERED: NS 1,000 ML IV ONE ×3 (16:38→17:42)
[2017-08-05 16:44] LABS: PLATELET COUNT 458 10^3/uL (150-400)
--- NOTE | 2017-08-05 16:44 | EDPHY ---
H & P Stated Complaint: Thinks she's dehydrated; n/v Time Seen by Provider: 08/05/17 16:28 HPI/ROS: CHIEF COMPLAINT: Dehydration HISTORY OF PRESENT ILLNESS: The patient is a 72-year-old female with a history of anorexia who is cared for by Dr. Sadie Blanco. She has been working very hard with her and doctor to eat and drink more. She has been doing better but still about once every week or 2 requires IV hydration. This typically happens at home with assistance of home health nurse however today there was a several hour wait for the health nurse. They decided to come to the ER. She states that she had some mild abdominal cramping last night and then vomited 4 times this morning. No blood in her vomit. No diarrhea. No fever. No urinary symptoms. Her states that they have done multiple CT scans and MRIs of her abdomen and brain in never found any abnormalities. REVIEW OF SYSTEMS: Constitutional: denies: chills, fever, recent illness, recent injury EENTM: denies: blurred vision, double vision, nose congestion Respiratory: denies: cough, shortness of breath Cardiac: denies: chest pain, irregular heart rate, lightheadedness, palpitations Gastrointestinal/Abdominal: See HPI Genitourinary: denies: dysuria, frequency, hematuria, pain Musculoskeletal: denies: joint pain, muscle pain Skin: denies: lesions, rash, jaundice, bruising Neurological: denies: headache, numbness, paresthesia, tingling, dizziness, weakness Hematologic/Lymphatic: denies: blood clots, easy bleeding, easy bruising Immunologic/allergic: denies: HIV/AIDS, transplant EXAM: GENERAL: Well-appearing, well-nourished and in no acute distress. HEAD: Atraumatic, normocephalic. EYES: Pupils equal round and reactive to light, extraocular movements intact, sclera anicteric, conjunctiva are normal. ENT: TMs normal, nares patent, oropharynx dry. Dry mucous membranes. NECK: Normal range of motion, supple without lymphadenopathy or JVD. LUNGS: Breath sounds clear to auscultation bilaterally and equal. No wheezes rales or rhonchi. HEART: Regular rate and rhythm without murmurs, rubs or gallops. ABDOMEN: Soft, nontender, normoactive bowel sounds. No guarding, no rebound. No masses appreciated. BACK: No CVA tenderness, no spinal tenderness, step-offs or deformities EXTREMITIES: Normal range of motion, no pitting or edema. No clubbing or cyanosis. NEUROLOGICAL: Cranial nerves II through XII grossly intact. Normal speech, normal gait. 5/5 strength, normal movement in all extremities, normal sensation PSYCH: Normal mood, normal affect. SKIN: Warm, dry, normal turgor, no visible rashes or lesions. Source: Patient Exam Limitations: No limitations - Personal History Current Tetanus Diphtheria and Acellular Pertussis (TDAP): Yes Tetanus Vaccine Date: <10YRS - Medical/Surgical History Hx Asthma: No Hx Chronic Respiratory Disease: No Hx Diabetes: No Hx Cardiac Disease: No Hx Renal Disease: No Hx Cirrhosis: No Hx Alcoholism: No Hx HIV/AIDS: No Hx Splenectomy or Spleen Trauma: No Other PMH: FTT, anorexia, kidney stones, small bowel obs - Family History Significant Family History: No pertinent family hx - Social History Smoking Status: Former smoker Alcohol Use: Sober Drug Use: None Constitutional: Initial Vital Signs Temperature (C) 36.5 C 08/05/17 16:15 Heart Rate 72 08/05/17 16:15 Respiratory Rate 18 08/05/17 16:15 Blood Pressure 106/70 08/05/17 16:15 O2 Sat (%) 95 08/05/17 16:15 O2 Delivery Mode Room Air Allergies/Adverse Reactions: No Known Allergies Allergy (Verified 08/05/17 16:14) Home Medications: Medication Instructions Recorded Escitalopram Oxalate [Lexapro] 20 mg PO DAILY 06/27/17 Acetaminophen [Tylenol 325mg (*)] 650 mg PO Q4HRS PRN tab 06/28/17 Promethazine HCl [Phenergan 12.5mg 6.25 - 12.5 mg PO Q6H PRN #20 06/28/17 tab] tablet Ondansetron Odt [Zofran Odt 4 mg 4 mg PO Q4PRN PRN #20 tab 07/08/17 (*)] Medical Decision Making ED Course/Re-evaluation: 5:40 p.m. the patient is feeling much better. She states that she would like to go home. She has not urinated. I offered a 3rd L which her would appreciate. They declined further workup or testing at this time. Differential Diagnosis: Partial list of the Differential diagnosis considered include but were not limited to; dehydration, vomiting, gastroenteritis, anorexia and although unlikely based on the history and physical exam, I also considered peptic ulcer disease, obstruction, ischemia. I discussed these differential diagnoses and the plan with the patient as well as the usual and expected course. The patient understands that the diagnosis is provisional and that in medicine we are not always correct and that further workup is often warranted. Usual and customary warnings were given. All of the patient's questions were answered. The patient was instructed to return to the emergency department should the symptoms at all worsen or return, otherwise to followup with the physician as we discussed. - Data Points Laboratory Results: Laboratory Results 08/05/17 16:30 08/05/17 16:30 08/05/17 08/05/17 16:30 16:30 WBC 8.64 10^3/uL 10^3/uL (3.80-9.50) RBC 4.57 10^6/uL 10^6/uL (4.18-5.33) Hgb 12.7 g/dL g/dL (12.6-16.3) Hct 40.4 % % (38.0-47.0) MCV 88.4 fL fL (81.5-99.8) MCH 27.8 pg L pg (27.9-34.1) MCHC 31.4 g/dL L g/dL (32.4-36.7) RDW 15.3 % H % (11.5-15.2) Plt Count 458 10^3/uL H 10^3/uL (150-400) MPV 9.0 fL fL (8.7-11.7) Neut % (Auto) 80.4 % H % (39.3-74.2) Lymph % (Auto) 9.1 % L % (15.0-45.0) [place] % (Auto) 8.7 % % (4.5-13.0) Eos % (Auto) 1.2 % % (0.6-7.6) Baso % (Auto) 0.3 % % (0.3-1.7) Nucleat RBC Rel Count 0.0 % % (0.0-0.2) Absolute Neuts (auto) 6.94 10^3/uL H 10^3/uL (1.70-6.50) Absolute Lymphs (auto) 0.79 10^3/uL L 10^3/uL (1.00-3.00) Absolute Monos (auto) 0.75 10^3/uL 10^3/uL (0.30-0.80) Absolute Eos (auto) 0.10 10^3/uL 10^3/uL (0.03-0.40) Absolute Basos (auto) 0.03 10^3/uL 10^3/uL (0.02-0.10) Absolute Nucleated RBC 0.00 10^3/uL 10^3/uL (0-0.01) Immature Gran % 0.3 % % (0.0-1.1) Immature Gran # 0.03 10^3/uL 10^3/uL (0.00-0.10) Sodium 143 mEq/L mEq/L (135-145) Potassium 3.9 mEq/L mEq/L (3.5-5.2) Chloride 103 mEq/L mEq/L (97-110) Carbon Dioxide 27 mEq/l mEq/l (22-31) Anion Gap 13 mEq/L mEq/L (8-16) BUN 21 mg/dL mg/dL (7-23) Creatinine 0.8 mg/dL mg/dL (0.6-1.0) Estimated GFR > 60 Glucose 103 mg/dL H mg/dL (70-100) Calcium 9.5 mg/dL mg/dL (8.5-10.4) Medications Given: Discontinued Medications Sodium Chloride (Ns) 1,000 mls @ 0 mls/hr IV EDNOW ONE; Wide Open PRN Reason: Protocol Stop: 08/05/17 16:39 Last Admin: 08/05/17 16:43 Dose: 1,000 mls Sodium Chloride (Ns) 1,000 mls @ 0 mls/hr IV EDNOW ONE; Wide Open PRN Reason: Protocol Stop: 08/05/17 16:39 Last Admin: 08/05/17 16:43 Dose: 1,000 mls Sodium Chloride (Ns) 1,000 mls @ 0 mls/hr IV EDNOW ONE; Wide Open PRN Reason: Protocol Stop: 08/05/17 17:43 Last Admin: 08/05/17 17:51 Dose: 1,000 mls Ondansetron HCl (Zofran) 4 mg IVP EDNOW ONE Stop: 08/05/17 16:39 Last Admin: 08/05/17 16:43 Dose: 4 mg Departure - Departure Disposition: Home, Routine, Self-Care Clinical Impression: Dehydration, Anorexia nervosa Condition: Fair Instructions: Dehydration (ED), Anorexia Nervosa (ED) Referrals: Sadie Blanco MD [Primary Care Provider] - 2-3 days, call for appt.
[2017-08-05 18:24] VITALS: BP 112/68
== END 2017-08-05 18:24 | disposition home or self-care (01) ==
DX: E86.0 Dehydration (principal); F50.00 Anorexia nervosa, unspecified; E86.9 Volume depletion, unspecified; Z87.891 Personal history of nicotine dependence
CPT/HCPCS: 96374; J2405

== ENCOUNTER → 2017-08-22 | Outpatient (CLI) | payer OTHER ==
[~2017-08-22] MED LIST: GADOBUTROL 10 ML VIAL IVP ONE
== END ==
LOC: FIMAGING 14:34
PROVIDERS: ATTEND Psychiatry & Neurology Neurology
DX: R26.81 Unsteadiness on feet (principal); R41.3 Other amnesia; M48.02 Spinal stenosis, cervical region; R42 Dizziness and giddiness; R94.02 Abnormal brain scan; M50.30 Other cervical disc degeneration, unspecified cervical region; E04.9 Nontoxic goiter, unspecified
CPT/HCPCS: 70553; 72141; A9585

== ENCOUNTER → 2017-09-05 | Outpatient (CLI) | payer OTHER | LOC: FIMAGING 14:20 | PROVIDERS: ATTEND Psychiatry & Neurology Neurology | DX: E04.1 Nontoxic single thyroid nodule (principal); M47.892 Other spondylosis, cervical region; M48.02 Spinal stenosis, cervical region ==

== ENCOUNTER → 2017-09-13 | Outpatient (CLI) | payer OTHER ==
[~2017-09-13] MED LIST changes: -GADOBUTROL 10 ML VIAL IVP ONE; +IOPAMIDOL (ISOVUE-300) 100 ML BTL ONE
== END ==
LOC: FIMAGING 13:40
PROVIDERS: ATTEND Psychiatry & Neurology Neurology
DX: R59.0 Localized enlarged lymph nodes (principal)
CPT/HCPCS: 71260; Q9967

== ENCOUNTER 2018-01-18 01:53 | Inpatient (IN) | payer OTHER ==
--- NOTE | 2018-01-18 01:57 | EDPHY ---
H & P Time Seen by Provider: 01/18/18 01:57 HPI/ROS: HPI CHIEF COMPLAINT: Back pain. Lower abdominal pain. HISTORY OF PRESENT ILLNESS: 72-year-old female, who I am very familiar with, presents emergency room with low back pain and abdominal pain. This service evening while going to bed around 10:00 p.m.. Or 4 hr ago. Been persistent. Comes in waves. Describes as crampy lower abdominal pain and low back pain. Denies urinary symptoms. She did have 1 episode of vomiting. at bedside also reports that she has had decreased p.o. Intake today. Very little p.o. Fluids . Patient denies fever, chest pain or shortness of breath. Has had some loose stools. No blood. Patient denies any saddle anesthesia, leg weakness, referral pain down either leg. Past Medical History: Significant medical history for recurrent small-bowel obstruction, dehydration, so to thrive, cognitive decline, dementia, anorexia Past Surgical History: No Recent surgery Social History: Denies drugs alcohol tobacco. Family History: Noncontributory. ROS REVIEW OF SYSTEMS: 10 Systems were reviewed and negative with the exception of the elements mentioned in the history of present illness. Exam Constitutional frail, elderly, nontoxic triage nursing summary reviewed, vital signs reviewed, awake/alert. Eyes normal conjunctivae and sclera, EOMI, PERRLA. HENT normal inspection, atraumatic, moist mucus membranes, no epistaxis, neck supple/ no meningismus, no raccoon eyes. Respiratory clear to auscultation bilaterally, normal breath sounds, no respiratory distress, no wheezing. Cardiovascular rate normal, regular rhythm, no murmur, no edema, distal pulses normal. Gastrointestinal mildly tender lower abdomen, no rebound, no guarding, normal bowel sounds, no distension, no pulsatile mass. Genitourinary no CVA tenderness. Musculoskeletal no midline vertebral tenderness, full range of motion, no calf swelling, no tenderness of extremities, no meningismus, good pulses, neurovascularly intact. Skin pink, warm, & dry, no rash, skin atraumatic. Neurologic awake, alert and oriented x 3, AAOx3, moves all 4 extremities equally, motor intact, sensory intact, CN II-XII intact, normal cerebellar, normal vision, normal speech. Psychiatric normal mood/affect. Heme/Lymph/Immune no lymphadenopathy. Differential diagnosis includes but is not limited to and in no particular order: Bowel obstruction, appendicitis, gallbladder disease, diverticulitis, colitis, enteritis, perforated viscus, gastritis, GERD, esophagitis, urinary tract infection, pyelonephritis, kidney stones Medical Decision Making: Plan for this patient IV establishment IV fluid bolus , IV Dilaudid for pain control, check UA, basic blood work, electrolytes, lactic. Re-evaluate. Re-evaluation: CT scan abdomen pelvis with IV contrast shows an ileus versus early small bowel obstruction. No free air. Minimal ascites. Plan for this patient should be admitted the hospital service for ongoing nausea , abdominal pain further management. At this time 5:01 a.m. She is hemodynamically stable no acute distress resting comfortably. Source: Patient - Personal History Tetanus Vaccine Date: <10YRS - Medical/Surgical History Hx Asthma: No Hx Chronic Respiratory Disease: No Hx Diabetes: No Hx Cardiac Disease: No Hx Renal Disease: No Hx Cirrhosis: No Hx Alcoholism: No Hx HIV/AIDS: No Hx Splenectomy or Spleen Trauma: No Other PMH: FTT, anorexia, kidney stones, small bowel obs - Social History Smoking Status: Former smoker Constitutional: Initial Vital Signs Temperature (C) 36.8 C 01/18/18 01:57 Heart Rate 64 01/18/18 01:57 Respiratory Rate 16 01/18/18 01:57 Blood Pressure 164/95 H 01/18/18 01:57 O2 Sat (%) 94 01/18/18 01:57 O2 Delivery Mode Nasal Cannula O2 (L/minute) 2 Allergies/Adverse Reactions: No Known Allergies Allergy (Verified 08/05/17 16:14) Home Medications: Medication Instructions Recorded Escitalopram Oxalate [Lexapro] 20 mg PO DAILY 01/18/18 Medical Decision Making - Data Points Laboratory Results: Laboratory Results 01/18/18 01:11 01/18/18 01:11 Medications Given: Discontinued Medications Escitalopram Oxalate (Lexapro) 20 mg PO DAILY MAHAD Stop: 07/17/18 08:59 Last Admin: 01/19/18 09:24 Dose: 20 mg Hydromorphone HCl (Dilaudid) 1 mg IVP EDNOW ONE Stop: 01/18/18 02:02 Last Admin: 01/18/18 02:14 Dose: 1 mg Hydromorphone HCl (Dilaudid) 1 mg IVP EDNOW ONE Stop: 01/18/18 04:29 Last Admin: 01/18/18 04:41 Dose: 1 mg Sodium Chloride (Ns) 1,000 mls @ 0 mls/hr IV EDNOW ONE; Wide Open PRN Reason: Protocol Stop: 01/18/18 02:02 Last Admin: 01/18/18 02:15 Dose: 1,000 mls Sodium Chloride (Ns) 1,000 mls @ 75 mls/hr IV CONT MAHAD Stop: 07/17/18 07:29 Last Admin: 01/19/18 01:16 Dose: 1,000 mls Lorazepam (Ativan Injection) 0.25 - 0.5 mg IVP Q8HRS PRN PRN Reason: Spasms Stop: 07/17/18 07:17 Last Admin: 01/18/18 22:58 Dose: 0.5 mg Oxycodone HCl (Oxycodone Ir) 5 mg PO Q4HRS PRN PRN Reason: Pain, Severe Able to Take PO Stop: 01/28/18 20:07 Last Admin: 01/18/18 20:14 Dose: 5 mg Trazodone HCl (Trazodone) 50 mg PO HS MAHAD Stop: 07/17/18 20:59 Last Admin: 01/18/18 20:17 Dose: 50 mg Departure - Departure Disposition: [facility] Clinical Impression: Ileus Abdominal pain Qualifiers: Abdominal location: generalized Qualified Code(s): R10.84 - Generalized abdominal pain Condition: Good
[2018-01-18] MEDS ORDERED: HYDROmorphONE/DILAUDID 2 MG/ML INJ IVP ONE ×2 (02:01→04:28)
[2018-01-18] MEDS ORDERED: NS 1,000 ML IV ONE (02:01)
[2018-01-18] MEDS ORDERED: HYDROmorphONE/DILAUDID 1 MG/ML INJ ONE (02:12)
[2018-01-18 02:20] LABS: PLATELET COUNT 335 10^3/uL (150-400)
[2018-01-18] MEDS ORDERED: IOPAMIDOL (ISOVUE-300) 100 ML BTL ONE (02:23)
[2018-01-18] MEDS ORDERED: ACETAMINOPHEN 650 MG SUPP PR PRN (07:18)
[2018-01-18] MEDS ORDERED: ONDANSETRON DISINTEGRATING 4 MG TAB PO PRN (07:18)
[2018-01-18] MEDS ORDERED: HYDROmorphONE/DILAUDID 1 MG/ML INJ IVP PRN (07:18)
[2018-01-18] MEDS ORDERED: LORazepam 2 MG/ML INJ IVP PRN (07:18)
[2018-01-18] MEDS ORDERED: ONDANSETRON 4 MG/2 ML VIAL IVP PRN (07:18)
[2018-01-18] MEDS: ESCITALOPRAM OXALATE 10 MG TAB PO SCH (09:36)
[2018-01-18] MEDS: NS 1,000 ML IV SCH (09:37)
--- NOTE | 2018-01-18 14:35 | PDGENHP ---
History and Physical - Chief Complaint Back, abdominal pain - History of Present Illness Daphne Schaffer is a 72 yo F with a PMHx of nephrolithiasis, recurrent SBO, FTT, dementia, anorexia who presents to [facility] for back pain and abdominal pain. Symptoms began at approx. 10:00 p.m last night. Pain is located in lower abdomen and lower back, described as dull, crampy pain, intermittent. She had associated symptoms of nausea with one episode of non-bilious, non-bloody emesis. Patient has had decreased appetite since yesterday. She denies any chest pain, SOB, fever, chills, dysuria, edema. She did have loose stools yesterday morning. She does not believe she has been passing gas overnight. History Information - Allergies/Home Medication List Allergies/Adverse Reactions: No Known Allergies Allergy (Verified 08/05/17 16:14) Home Medications: Escitalopram Oxalate [Lexapro] 20 mg PO DAILY 01/18/18 [Last Taken 01/17/18] I have personally reviewed and updated: family history, medical history, social history, surgical history - Past Medical History dementia Additional medical history: peripheral neuropathy of her feet. 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 Review of Systems Review of Systems: ROS: 10pt was reviewed & negative except for what was stated in HPI & below Physical Exam Physical Exam: Temp Pulse Resp BP Pulse Ox 36.9 C 58 L 16 129/77 H 97 01/18/18 12:33 01/18/18 12:33 01/18/18 12:33 01/18/18 12:33 01/18/18 12:33 O2 (L/minute) 2 Constitutional: chronically ill appearing, uncomfortable Eyes: PERRL Ears, Nose, Mouth, Throat: dry mucous membranes Cardiovascular: regular rate and rhythym Respiratory: no respiratory distress, clear to auscultation Gastrointestinal: tenderness, No normoactive bowel sounds, No guarding, No rebound, No distension Genitourinary: no bladder tenderness, No banks in urethra Skin: warm Musculoskeletal: no muscle tenderness Neurologic: AAOx3 Psychiatric: interacting appropriately Lab Data & Imaging Review 01/18/18 01:11 01/18/18 01:11 WBC 6.10 10^3/uL (3.80-9.50) 01/18/18 01:11 RBC 4.26 10^6/uL (4.18-5.33) 01/18/18 01:11 Hgb 13.4 g/dL (12.6-16.3) 01/18/18 01:11 Hct 40.0 % (38.0-47.0) 01/18/18 01:11 MCV 93.9 fL (81.5-99.8) 01/18/18 01:11 MCH 31.5 pg (27.9-34.1) 01/18/18 01:11 MCHC 33.5 g/dL (32.4-36.7) 01/18/18 01:11 RDW 15.2 % (11.5-15.2) 01/18/18 01:11 Plt Count 335 10^3/uL (150-400) 01/18/18 01:11 MPV 8.7 fL (8.7-11.7) 01/18/18 01:11 Neut % (Auto) 78.4 % (39.3-74.2) H 01/18/18 01:11 Lymph % (Auto) 13.6 % (15.0-45.0) L 01/18/18 01:11 [place] % (Auto) 5.2 % (4.5-13.0) 01/18/18 01:11 Eos % (Auto) 1.6 % (0.6-7.6) 01/18/18 01:11 Baso % (Auto) 0.7 % (0.3-1.7) 01/18/18 01:11 Nucleat RBC Rel Count 0.0 % (0.0-0.2) 01/18/18 01:11 Absolute Neuts (auto) 4.78 10^3/uL (1.70-6.50) 01/18/18 01:11 Absolute Lymphs (auto) 0.83 10^3/uL (1.00-3.00) L 01/18/18 01:11 Absolute Monos (auto) 0.32 10^3/uL (0.30-0.80) 01/18/18 01:11 Absolute Eos (auto) 0.10 10^3/uL (0.03-0.40) 01/18/18 01:11 Absolute Basos (auto) 0.04 10^3/uL (0.02-0.10) 01/18/18 01:11 Absolute Nucleated RBC 0.00 10^3/uL (0-0.01) 01/18/18 01:11 Immature Gran % 0.5 % (0.0-1.1) 01/18/18 01:11 Immature Gran # 0.03 10^3/uL (0.00-0.10) 01/18/18 01:11 VBG Lactic Acid 0.9 mmol/L (0.7-2.1) 01/18/18 02:05 Sodium 144 mEq/L (135-145) 01/18/18 01:11 Potassium 3.5 mEq/L (3.3-5.0) 01/18/18 01:11 Chloride 110 mEq/L (97-110) 01/18/18 01:11 Carbon Dioxide 26 mEq/l (22-31) 01/18/18 01:11 Anion Gap 8 mEq/L (6-14) 01/18/18 01:11 BUN 14 mg/dL (7-23) 01/18/18 01:11 Creatinine 0.8 mg/dL (0.6-1.0) 01/18/18 01:11 Estimated GFR > 60 01/18/18 01:11 Glucose 100 mg/dL (70-100) 01/18/18 01:11 Calcium 9.6 mg/dL (8.5-10.4) 01/18/18 01:11 Total Bilirubin 0.6 mg/dL (0.1-1.4) 01/18/18 01:11 Conjugated Bilirubin 0.3 mg/dL (0.0-0.5) 01/18/18 01:11 Unconjugated Bilirubin 0.3 mg/dL (0.0-1.1) 01/18/18 01:11 AST 19 IU/L (14-46) 01/18/18 01:11 ALT 28 IU/L (9-52) 01/18/18 01:11 Alkaline Phosphatase 65 IU/L (38-126) 01/18/18 01:11 Total Protein 6.7 g/dL (6.3-8.2) 01/18/18 01:11 Albumin 3.8 g/dL (3.5-5.0) 01/18/18 01:11 Lipase 82 IU/L (23-300) 01/18/18 01:11 Urine Color YELLOW 01/18/18 03:15 Urine Appearance CLEAR 01/18/18 03:15 Urine pH 5.0 (5.0-7.5) 01/18/18 03:15 Ur Specific [place] > 1.035 (1.002-1.030) H 01/18/18 03:15 Urine Protein NEGATIVE (NEGATIVE) 01/18/18 03:15 Urine Ketones NEGATIVE (NEGATIVE) 01/18/18 03:15 Urine Blood 1+ (NEGATIVE) H 01/18/18 03:15 Urine Nitrate NEGATIVE (NEGATIVE) 01/18/18 03:15 Urine Bilirubin NEGATIVE (NEGATIVE) 01/18/18 03:15 Urine Urobilinogen NEGATIVE EU (0.2-1.0) 01/18/18 03:15 Ur Leukocyte Esterase NEGATIVE (NEGATIVE) 01/18/18 03:15 Urine RBC 1-3 /hpf (0-3) 01/18/18 03:15 Urine WBC 1-3 /hpf (0-3) 01/18/18 03:15 Ur Epithelial Cells TRACE /lpf (NONE-1+) 01/18/18 03:15 Urine Mucus TRACE /lpf (NONE-1+) 01/18/18 03:15 Urine Glucose NEGATIVE (NEGATIVE) 01/18/18 03:15 Assessment & Plan Assessment: SBO/Ileus - Presents with acute onset, abdominal pain overnight - CT Abdomen on admission shows small bowel dilation representing ileus vs. SBO - Had loose BM yesterday AM, denies passing stool/gas since - Reports one episode of SBO in the past, managed non-surgically - No hx of abdominal/pelvix surgery - Will keep NPO - One episode of nausea overnight, will hold on NGT, if n/v persists plan to insert - If no improvement over 24 hours, consider surgical consult for further evaluation and treatment - Pain and nausea control PRN Depression - Continue home Lexapro when able to tolerate PO Dementia - Patient appears to be at baseline FEN: NPO, IVF Ppx: SCDs Code: FULL Dispo: Admit to Medicine, pending clinical course
--- NOTE | 2018-01-18 15:50 | ASMTCMCOM ---
CM Note CM Note Notes: Pt admitted yesterday for abdominal pain related to possible small bowel obstruction v ileus. Pt lives independently with her , though has past medical history of dementia, anorexia and failure to thrive. 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 Spoke with pt and her brother in the room as well as with pt's RN. Pt likely to discharge independently. No therapies ordered. No CM needs noted at this time. CM to follow. D/C Plan: Independent Date Signed: 01/18/2018 03:49 PM Electronically Signed By:Bev Ramos
--- NOTE | 2018-01-18 16:08 | PDMN ---
Medical Necessity Medical necessity: Pt meets inpt criteria per MD order and MCG M-200, Ileus or MCG M-210, Intestinal Obstruction. 72 y/o presented w/acute onset abdominal/ back pain and nausea, CT abdomen shows ileus vs sm bowel obstruction, pt admitted w/SBO vs Ileus, anticipate>2MN for further monitoring/treatment.
[2018-01-18] MEDS ORDERED: oxyCODONE IR 5 MG TAB PO PRN (20:08)
[2018-01-18] MEDS ORDERED: traZODone 50 MG TAB PO SCH (21:00)
[2018-01-19] MEDS: NS 1,000 ML IV SCH (01:16)
[2018-01-19] MEDS: ESCITALOPRAM OXALATE 10 MG TAB PO SCH (09:24)
[2018-01-19 12:02] VITALS: BP 130/83
--- NOTE | 2018-01-19 19:41 | GDS ---
DISCHARGE DIAGNOSES: 1. Ileus versus mild small bowel obstruction. 2. Previous history of small bowel obstruction for unknown reason. 3. Dementia. 4. History of nephrolithiasis. 5. History of peripheral neuropathy. HISTORY: This is a 72-year-old female who presented with nausea and abdominal pain. HOSPITAL COURSE: Patient was diagnosed with ileus versus a mild partial small bowel obstruction. Sh e was kept n.p.o. The following day, she was having bowel movements and was hungry and wanted to go home. She was started on a diet which she tolerated. Did review her previous records and early last year, she had a high-grade partial small bowel obstruc tion that resolved fairly quickly as well. A small bowel follow through at that time was negative. I am not sure if she would benefit from another small bowel follow through or perhaps another surgica l consultation for these recurrent obstructions. She did have a colonoscopy a few months ago which s he says is normal. At this point, we will discharge her home. She knows to come back if she develop s more pain or nausea and vomiting. /[id number]/MODL
== END 2018-01-19 14:40 | disposition home or self-care (01) | DRG 390 ==
LOC: OBSVTOIN 05:49 → F1N 06:16
PROVIDERS: ADMIT Family Medicine; ATTEND Internal Medicine
DX: K56.7 Ileus, unspecified (principal); K56.600 Partial intestinal obstruction, unspecified as to cause; F03.90 Unspecified dementia, unspecified severity, without behavioral disturbance, psychotic disturbance, mood disturbance, and anxiety; G62.9 Polyneuropathy, unspecified; R62.7 Adult failure to thrive; Z87.442 Personal history of urinary calculi
CPT/HCPCS: 96374; 97116-GP; 97162-GP; G8978-GP-CJ; G8979-GP-CI; J1170; J2060; Q9967

== ENCOUNTER → 2018-03-06 | Outpatient (CLI) | payer OTHER | LOC: BMCIMAGING 14:19 | PROVIDERS: ATTEND Physician Assistant | DX: Z09 Encounter for follow-up examination after completed treatment for conditions other than malignant neoplasm (principal); N20.0 Calculus of kidney ==

== ENCOUNTER 2018-04-23 16:09 | Emergency (ER) | payer OTHER ==
[2018-04-23] MEDS ORDERED: NS 1,000 ML IV ONE ×2 (16:33→17:38)
--- NOTE | 2018-04-23 16:33 | EDPHY ---
H & P Stated Complaint: states pt doesn't eat or drink gets dehydrated/dizzy Time Seen by Provider: 04/23/18 16:30 HPI/ROS: CHIEF COMPLAINT: Presyncope HISTORY OF PRESENT ILLNESS: The patient presents the ED with a 1 day history of presyncope. The patient does have a history of chronic intermittent orthostasis. This typically is result of decreased oral intake. The patient does report some symptoms of decreased oral intake over the past several days. She denies any headache, fall, numbness, weakness, fever, cough, congestion or complaints of acute pain. The patient describes positional orthostasis. She states her symptoms are mild to moderate nature. She denies any melena, hematemesis or diarrhea. The patient takes no regular medications aside Lexapro which she has been on for some time. REVIEW OF SYSTEMS: A comprehensive 10 point review of systems is otherwise negative aside from elements mentioned in the history of present illness. Source: Patient - Personal History Current Tetanus Diphtheria and Acellular Pertussis (TDAP): Yes Tetanus Vaccine Date: <10YRS - Medical/Surgical History Hx Asthma: No Hx Chronic Respiratory Disease: No Hx Diabetes: No Hx Cardiac Disease: No Hx Renal Disease: No Hx Cirrhosis: No Hx Alcoholism: No Hx HIV/AIDS: No Hx Splenectomy or Spleen Trauma: No Other PMH: FTT, anorexia, kidney stones, small bowel obs - Social History Smoking Status: Former smoker - Physical Exam Exam: General Appearance: Thin elderly female, no acute distress Eyes: Pupils equal and round no pallor or injection ENT, Mouth: Dry mucous membranes Respiratory: There are no retractions, lungs are clear to auscultation Cardiovascular: Regular rate and rhythm Gastrointestinal: Abdomen is soft and nontender, no masses, bowel sounds normal Neurological: 5/5 strength noted all 4 extremities Skin: Warm and dry, no rashes Musculoskeletal: Neck is supple nontender Extremities: symmetrical, full range of motion Constitutional: Initial Vital Signs Temperature (C) 36.7 C 04/23/18 16:18 Heart Rate 60 04/23/18 16:18 Respiratory Rate 18 04/23/18 16:18 Blood Pressure 114/74 04/23/18 16:18 O2 Sat (%) 96 04/23/18 16:18 O2 Delivery Mode Room Air Allergies/Adverse Reactions: No Known Allergies Allergy (Verified 04/23/18 16:18) Home Medications: Medication Instructions Recorded Escitalopram Oxalate [Lexapro] 20 mg PO DAILY 01/18/18 Medical Decision Making - Diagnostics EKG Interpretation: EKG: Complete interpretation has been separately recorded in the [facility] archive. Summary impression: Sinus rhythm, nonspecific ST T wave changes noted ED Course/Re-evaluation: The patient presents to the ED with positional orthostasis. She did appear to be dehydrated clinically. The patient had an IV established. She received 2 L of normal saline. Laboratory studies are unremarkable for evidence of critical anemia, metabolic derangement or renal failure. Her EKG demonstrates no evidence of an arrhythmia. The patient was reassessed after receiving 2 L of normal saline and is ambulatory without acute complaints. She has been encouraged to increase her fluid intake as dehydration likely contributed to her symptoms today. Differential Diagnosis: Differential diagnosis considered includes dehydration, metabolic abnormality, arrhythmia, renal failure - Data Points Laboratory Results: Laboratory Results 04/23/18 16:45 04/23/18 16:45 04/23/18 04/23/18 16:45 16:45 WBC 4.71 10^3/uL 10^3/uL (3.80-9.50) RBC 3.93 10^6/uL L 10^6/uL (4.18-5.33) Hgb 12.5 g/dL L g/dL (12.6-16.3) Hct 39.2 % % (38.0-47.0) MCV 99.7 fL fL (81.5-99.8) MCH 31.8 pg pg (27.9-34.1) MCHC 31.9 g/dL L g/dL (32.4-36.7) RDW 13.6 % % (11.5-15.2) Plt Count 309 10^3/uL 10^3/uL (150-400) MPV 9.0 fL fL (8.7-11.7) Neut % (Auto) 51.8 % % (39.3-74.2) Lymph % (Auto) 26.1 % % (15.0-45.0) [place] % (Auto) 13.0 % % (4.5-13.0) Eos % (Auto) 7.2 % % (0.6-7.6) Baso % (Auto) 1.5 % % (0.3-1.7) Nucleat RBC Rel Count 0.0 % % (0.0-0.2) Absolute Neuts (auto) 2.44 10^3/uL 10^3/uL (1.70-6.50) Absolute Lymphs (auto) 1.23 10^3/uL 10^3/uL (1.00-3.00) Absolute Monos (auto) 0.61 10^3/uL 10^3/uL (0.30-0.80) Absolute Eos (auto) 0.34 10^3/uL 10^3/uL (0.03-0.40) Absolute Basos (auto) 0.07 10^3/uL 10^3/uL (0.02-0.10) Absolute Nucleated RBC 0.00 10^3/uL 10^3/uL (0-0.01) Immature Gran % 0.4 % % (0.0-1.1) Immature Gran # 0.02 10^3/uL 10^3/uL (0.00-0.10) Sodium 138 mEq/L mEq/L (135-145) Potassium 4.2 mEq/L mEq/L (3.5-5.2) Chloride 111 mEq/L H mEq/L (97-110) Carbon Dioxide 24 mEq/l mEq/l (22-31) Anion Gap 3 mEq/L L mEq/L (6-14) BUN 18 mg/dL mg/dL (7-23) Creatinine 0.8 mg/dL mg/dL (0.6-1.0) Estimated GFR > 60 Glucose 95 mg/dL mg/dL (70-100) Calcium 8.9 mg/dL mg/dL (8.5-10.4) Medications Given: Discontinued Medications Acetaminophen (Tylenol) 1,000 mg PO EDNOW ONE Stop: 04/23/18 17:10 Last Admin: 04/23/18 17:16 Dose: Not Given Sodium Chloride (Ns) 1,000 mls @ 0 mls/hr IV EDNOW ONE; Wide Open PRN Reason: Protocol Stop: 04/23/18 16:34 Last Admin: 04/23/18 16:41 Dose: 1,000 mls Sodium Chloride (Ns) 1,000 mls @ 0 mls/hr IV EDNOW ONE; Wide Open PRN Reason: Protocol Stop: 04/23/18 17:39 Last Admin: 04/23/18 17:43 Dose: 1,000 mls Departure - Departure Disposition: Home, Routine, Self-Care Clinical Impression: Pre-syncope, Dehydration Condition: Good Instructions: Near Syncope (ED) Additional Instructions: 1. Please try and increase your fluid intake as dehydration likely contributed to your symptoms today. 2. Follow up with your primary care provider as needed. 3. Return to the ED for any worsening symptoms, chest pain, difficulty breathing or other acute concerns. Referrals: Sadie Blanco MD [Primary Care Provider] - As per Instructions
[2018-04-23 16:55] LABS: PLATELET COUNT 309 10^3/uL (150-400)
[2018-04-23] MEDS ORDERED: ACETAMINOPHEN 500 MG TAB PO ONE (17:09)
--- NOTE | 2018-04-23 17:14 | CPEKG ---
Test Reason : OPEN Blood Pressure : / mmHG Vent. Rate : 059 BPM Atrial Rate : 059 BPM P-R Int : 165 ms QRS Dur : 101 ms QT Int : 466 ms P-R-T Axes : 061 -23 004 degrees QTc Int : 462 ms Sinus rhythm Left atrial enlargement Borderline left axis deviation Anteroseptal infarct, age indeterminate Confirmed by Jose Franco ([id number]) on 04/23/2018 5:13:46 PM Referred By: Jose Franco Confirmed By:Jose Franco
[2018-04-23 19:16] VITALS: BP 139/80
== END 2018-04-23 19:14 | disposition home or self-care (01) ==
DX: R55 Syncope and collapse (principal); E86.0 Dehydration

== ENCOUNTER → 2018-06-19 | Outpatient (CLI) | payer OTHER | LOC: BMCIMAGING 14:27 | PROVIDERS: ATTEND Internal Medicine | DX: Z12.31 Encounter for screening mammogram for malignant neoplasm of breast (principal); Z13.820 Encounter for screening for osteoporosis; M81.0 Age-related osteoporosis without current pathological fracture; E28.39 Other primary ovarian failure; Z78.0 Asymptomatic menopausal state ==

== ENCOUNTER 2018-09-21 03:29 | Emergency (ER) | payer OTHER | END 2018-09-21 05:07 | disposition home or self-care (01) ==